=== PATIENT | female | born 1960 | race Caucasian/White ===

== ENCOUNTER 2019-10-18 07:33 | Inpatient (IN) ==
[2019-10-18] MEDS ORDERED: CeFAZolin Syr 2,000MG/20 ML 2,000 MG/20 ML SYRINGE IVPB ONE (07:51)
[2019-10-18] MEDS ORDERED: Ringers Solution, Lactated 1,000 ML IVC SCH (08:00)
[2019-10-18] MEDS ORDERED: Gabapentin 300 MG CAPSULE PO ONE (08:00)
[2019-10-18] MEDS ORDERED: *HR* Labetalol 20 MG/4 ML SYRINGE IVP PRN (08:04)
[2019-10-18] MEDS ORDERED: *HR* HYDROmorphone PF 0.5 MG/0.5 ML SYRINGE IVP PRN (08:04)
[2019-10-18] MEDS ORDERED: *HR* Promethazine 25 MG/ML VIAL IVP PRN (08:04)
[2019-10-18] MEDS ORDERED: Ondansetron 4 MG/2 ML VIAL IVP PRN ×2 (08:04→12:52)
[2019-10-18] MEDS ORDERED: Famotidine 20 MG/2 ML VIAL IVP ONE (08:04)
[2019-10-18] MEDS ORDERED: Ondansetron 4 MG/2 ML VIAL ONE (09:25)
[2019-10-18] MEDS ORDERED: Ketorolac 30 MG/ML VIAL ONE (09:25)
[2019-10-18] MEDS ORDERED: Lidocaine -MPF 2% 2 ML VIAL ONE (09:25)
[2019-10-18] MEDS ORDERED: Dexamethasone 4 MG/ML VIAL ONE (09:25)
[2019-10-18] MEDS ORDERED: *HR* FentaNYL (PF) 100 MCG/2 ML VIAL ONE ×2 (09:25→10:39)
[2019-10-18] MEDS ORDERED: *HR* Succinylcholine 200 MG/10 ML VIAL IVP ONE (09:25)
[2019-10-18] MEDS ORDERED: *HR* Rocuronium Bromide 50 MG/5 ML VIAL ONE (09:25)
[2019-10-18] MEDS ORDERED: *HR* Midazolam HCl 2 MG/2 ML VIAL ONE (09:25)
[2019-10-18] MEDS ORDERED: *HR* Phenylephrine 10 MG/ML VIAL ONE (09:25)
[2019-10-18] MEDS ORDERED: *HR* Propofol 200 MG/20 ML VIAL IVP ONE (09:28)
[2019-10-18] MEDS ORDERED: Lidocaine Jelly 6ml 1 APPL/6 ML JEL.PF.APP ONE (09:37)
[2019-10-18] MEDS ORDERED: *HR* PHENYLEPHRINE 1,000 MCG/10 ML SYRINGE IVP ONE (10:10)
[2019-10-18] MEDS ORDERED: Albumin Human 5% 25.0 GM/500 ML IV.SOLN ONE (10:26)
[2019-10-18] MEDS ORDERED: *HR* HYDROMORPHONE 2 MG/ML VIAL ONE ×2 (11:34→11:41)
[2019-10-18] MEDS ORDERED: Naloxone 0.4 MG/ML INJ IVP PRN (12:52)
[2019-10-18] MEDS: 0.9 % Sodium Chloride 1,000 ML IVC SCH ×2 (12:55→23:36)
[2019-10-18] MEDS: *HR* Heparin 5,000 UNIT/ML VIAL SQ SCH ×2 (14:20→20:10)
[2019-10-18] MEDS: Ketorolac 15 MG/ML VIAL IVP SCH ×3 (14:20→23:32)
[2019-10-18] MEDS: Gabapentin 400 MG CAPSULE PO SCH ×2 (14:20→20:11)
[2019-10-18] MEDS: Ipratropium/Albuterol Neb 3 ML IH SCH ×4 (15:30→23:53)
[2019-10-18] MEDS: Famotidine 20 MG TABLET PO SCH (17:01)
[2019-10-18] MEDS: *HR* OxyCODONE/APAP 7.5/325 TABLET PO PRN ×2 (17:06→21:30)
[2019-10-18] MEDS: Budesonide/Formoterol 160/4.5 1 PUFF INH IH SCH (20:03)
[2019-10-18] MEDS: rOPINIRole 1 MG TABLET PO SCH (20:10)
[2019-10-18] MEDS: Sennosides/Docusate Sodium TABLET PO SCH (20:11)
[2019-10-19 02:47] LABS: Hematocrit 36.4 % (35.3-44.9); Hemoglobin 11.9 g/dL (11.5-15.4); Mean Corpuscular HGB Conc 32.7 g/dL (31.6-35.5); Mean Corpuscular Hemoglobin 28.9 pg (28.0-33.3); Mean Corpuscular Volume 88.3 fL (83.0-100.0); Mean Platelet Volume 9.3 fL (9.4-12.4); Platelet Count 238 K/mcL (140-400); Red Blood Count 4.12 M/mcL (3.82-4.97); Red Cell Distribution Width 14.8 % (11.5-14.5); White Blood Count 13.2 K/mcL (4.3-11.1)
[2019-10-19 03:06] LABS: % Iron Saturation 11 % (15-50); BUN/Creatinine Ratio 14 (6-26); Blood Urea Nitrogen 12 mg/dL (6-20); Calcium 8.4 mg/dL (8.6-10.3); Carbon Dioxide 29 mEq/L (23-29); Chloride 98 mEq/L (98-107); Glucose 114 mg/dL (70-105); Iron 32 mcg/dL (50-170); Magnesium 1.7 mg/dL (1.6-2.6); Osmolality,Calculated 277 (280-300); Potassium 3.8 mEq/L (3.5-5.1); Sodium 133 mEq/L (136-145); Transferrin 199 mg/dL (203-362); eGFR For African Americans > 60 (> 60); eGFR For Non-African Americans > 60 (> 60)
[2019-10-19] MEDS: Ipratropium/Albuterol Neb 3 ML IH SCH ×6 (03:42→23:58)
[2019-10-19] MEDS: *HR* OxyCODONE/APAP 7.5/325 TABLET PO PRN ×5 (04:12→22:15)
[2019-10-19] MEDS: *HR* Heparin 5,000 UNIT/ML VIAL SQ SCH ×3 (05:01→20:44)
[2019-10-19] MEDS: Ketorolac 15 MG/ML VIAL IVP SCH ×4 (05:01→23:55)
[2019-10-19] MEDS: Sennosides/Docusate Sodium TABLET PO SCH ×2 (07:40→20:44)
[2019-10-19] MEDS: Gabapentin 400 MG CAPSULE PO SCH ×3 (07:40→20:44)
[2019-10-19] MEDS: Budesonide/Formoterol 160/4.5 1 PUFF INH IH SCH ×2 (07:40→20:08)
[2019-10-19] MEDS: hydroCHLOROthiazide 25 MG TABLET PO SCH (07:41)
[2019-10-19] MEDS: Loratadine 10 MG TABLET PO SCH (07:41)
[2019-10-19] MEDS: Famotidine 20 MG TABLET PO SCH ×2 (07:41→15:23)
[2019-10-19] MEDS: Tiotropium 18 MCG inhalation IH SCH (07:45)
[2019-10-19] MEDS ORDERED: Iron Sucrose Complex 400 MG in 0.9 % Sodium Chloride 250 ML IVPB ONE (08:57)
[2019-10-19] MEDS: Fluticasone Propionate Nasal 50 MCG/SPRAY BOTTLE NS SCH (09:16)
[2019-10-19] MEDS: 0.9 % Sodium Chloride 1,000 ML IVC SCH (16:48)
[2019-10-19] MEDS: hydrOXYzine pamoate 25 MG CAPSULE PO PRN (19:10)
[2019-10-19] MEDS: rOPINIRole 1 MG TABLET PO SCH (20:44)
[2019-10-20] MEDS: hydrOXYzine pamoate 25 MG CAPSULE PO PRN ×2 (01:13→16:28)
[2019-10-20] MEDS: Ipratropium/Albuterol Neb 3 ML IH SCH ×6 (04:18→23:52)
[2019-10-20] MEDS: *HR* OxyCODONE/APAP 7.5/325 TABLET PO PRN ×5 (04:18→20:53)
[2019-10-20] MEDS: Famotidine 20 MG TABLET PO SCH ×2 (06:21→16:28)
[2019-10-20] MEDS: Ketorolac 15 MG/ML VIAL IVP SCH ×3 (06:22→16:28)
[2019-10-20] MEDS: *HR* Heparin 5,000 UNIT/ML VIAL SQ SCH ×3 (06:22→20:54)
[2019-10-20] MEDS: Loratadine 10 MG TABLET PO SCH (07:13)
[2019-10-20] MEDS: Gabapentin 400 MG CAPSULE PO SCH ×3 (07:14→20:52)
[2019-10-20] MEDS: Fluticasone Propionate Nasal 50 MCG/SPRAY BOTTLE NS SCH (07:14)
[2019-10-20] MEDS: hydroCHLOROthiazide 25 MG TABLET PO SCH (07:14)
[2019-10-20] MEDS: Sennosides/Docusate Sodium TABLET PO SCH ×2 (07:14→20:53)
[2019-10-20] MEDS: Budesonide/Formoterol 160/4.5 1 PUFF INH IH SCH ×2 (08:35→20:24)
[2019-10-20] MEDS: Tiotropium 18 MCG inhalation IH SCH (08:36)
[2019-10-20] MEDS: rOPINIRole 1 MG TABLET PO SCH (20:53)
[2019-10-21] MEDS: Ketorolac 15 MG/ML VIAL IVP SCH ×4 (00:07→16:31)
[2019-10-21] MEDS: hydrOXYzine pamoate 25 MG CAPSULE PO PRN (00:07)
[2019-10-21] MEDS: *HR* OxyCODONE/APAP 7.5/325 TABLET PO PRN ×5 (01:25→20:04)
[2019-10-21] MEDS: Ipratropium/Albuterol Neb 3 ML IH SCH ×5 (04:14→20:18)
[2019-10-21] MEDS: *HR* Heparin 5,000 UNIT/ML VIAL SQ SCH ×3 (05:45→22:29)
[2019-10-21] MEDS: Gabapentin 400 MG CAPSULE PO SCH ×3 (07:05→20:04)
[2019-10-21] MEDS: Loratadine 10 MG TABLET PO SCH (07:05)
[2019-10-21] MEDS: Fluticasone Propionate Nasal 50 MCG/SPRAY BOTTLE NS SCH (07:05)
[2019-10-21] MEDS: Sennosides/Docusate Sodium TABLET PO SCH ×2 (07:05→20:04)
[2019-10-21] MEDS: Famotidine 20 MG TABLET PO SCH ×2 (07:05→16:31)
[2019-10-21] MEDS: hydroCHLOROthiazide 25 MG TABLET PO SCH (07:05)
[2019-10-21] MEDS: Budesonide/Formoterol 160/4.5 1 PUFF INH IH SCH ×2 (07:59→20:18)
[2019-10-21] MEDS: Tiotropium 18 MCG inhalation IH SCH (08:00)
[2019-10-21] MEDS: Furosemide 40 MG/4 ML VIAL IVP SCH (11:04)
[2019-10-21] MEDS: rOPINIRole 1 MG TABLET PO SCH (20:04)
[2019-10-22] MEDS: Ipratropium/Albuterol Neb 3 ML IH SCH ×7 (00:06→23:50)
[2019-10-22] MEDS: Ketorolac 15 MG/ML VIAL IVP SCH ×5 (00:10→23:54)
[2019-10-22] MEDS: hydrOXYzine pamoate 25 MG CAPSULE PO PRN (02:51)
[2019-10-22] MEDS: *HR* OxyCODONE/APAP 7.5/325 TABLET PO PRN ×3 (04:19→21:07)
[2019-10-22] MEDS: *HR* Heparin 5,000 UNIT/ML VIAL SQ SCH ×3 (04:19→21:02)
[2019-10-22] MEDS: Furosemide 40 MG/4 ML VIAL IVP SCH (07:11)
[2019-10-22] MEDS: Famotidine 20 MG TABLET PO SCH ×2 (07:12→16:48)
[2019-10-22] MEDS: Loratadine 10 MG TABLET PO SCH (07:12)
[2019-10-22] MEDS: hydroCHLOROthiazide 25 MG TABLET PO SCH (07:12)
[2019-10-22] MEDS: Sennosides/Docusate Sodium TABLET PO SCH ×2 (07:12→21:02)
[2019-10-22] MEDS: Gabapentin 400 MG CAPSULE PO SCH ×3 (07:12→21:02)
[2019-10-22] MEDS: Fluticasone Propionate Nasal 50 MCG/SPRAY BOTTLE NS SCH (07:13)
[2019-10-22] MEDS: Budesonide/Formoterol 160/4.5 1 PUFF INH IH SCH ×2 (07:17→19:44)
[2019-10-22] MEDS: Tiotropium 18 MCG inhalation IH SCH (07:20)
[2019-10-22] MEDS ORDERED: Azithromycin 250 MG TABLET PO ONE (08:30)
[2019-10-22 08:59] LABS: Hematocrit 34.8 % (35.3-44.9); Hemoglobin 11.7 g/dL (11.5-15.4); Mean Corpuscular HGB Conc 33.6 g/dL (31.6-35.5); Mean Corpuscular Hemoglobin 29.1 pg (28.0-33.3); Mean Corpuscular Volume 86.6 fL (83.0-100.0); Mean Platelet Volume 9.7 fL (9.4-12.4); Platelet Count 244 K/mcL (140-400); Red Blood Count 4.02 M/mcL (3.82-4.97); Red Cell Distribution Width 14.8 % (11.5-14.5); White Blood Count 16.7 K/mcL (4.3-11.1)
[2019-10-22 09:18] LABS: BUN/Creatinine Ratio 21 (6-26); Blood Urea Nitrogen 13 mg/dL (6-20); Carbon Dioxide 29 mEq/L (23-29); Chloride 85 mEq/L (98-107); Glucose 147 mg/dL (70-105); Osmolality,Calculated 261 (280-300); Potassium 3.5 mEq/L (3.5-5.1); Sodium 124 mEq/L (136-145); eGFR For African Americans > 60 (> 60); eGFR For Non-African Americans > 60 (> 60)
[2019-10-22] MEDS: rOPINIRole 1 MG TABLET PO SCH (21:02)
[2019-10-23] MEDS: *HR* OxyCODONE/APAP 7.5/325 TABLET PO PRN ×4 (01:22→19:03)
[2019-10-23] MEDS: Ipratropium/Albuterol Neb 3 ML IH SCH ×6 (03:34→23:41)
[2019-10-23 04:18] LABS: Hematocrit 32.8 % (35.3-44.9); Hemoglobin 10.9 g/dL (11.5-15.4); Mean Corpuscular HGB Conc 33.2 g/dL (31.6-35.5); Mean Corpuscular Hemoglobin 29.1 pg (28.0-33.3); Mean Corpuscular Volume 87.5 fL (83.0-100.0); Mean Platelet Volume 10.5 fL (9.4-12.4); Platelet Count 278 K/mcL (140-400); Red Blood Count 3.75 M/mcL (3.82-4.97); Red Cell Distribution Width 14.9 % (11.5-14.5); White Blood Count 14.9 K/mcL (4.3-11.1)
[2019-10-23 04:42] LABS: BUN/Creatinine Ratio 23 (6-26); Blood Urea Nitrogen 13 mg/dL (6-20); Carbon Dioxide 30 mEq/L (23-29); Chloride 87 mEq/L (98-107); Glucose 113 mg/dL (70-105); Magnesium 1.6 mg/dL (1.6-2.6); Osmolality,Calculated 263 (280-300); Potassium 3.6 mEq/L (3.5-5.1); Sodium 126 mEq/L (136-145); eGFR For African Americans > 60 (> 60); eGFR For Non-African Americans > 60 (> 60)
[2019-10-23] MEDS: Ketorolac 15 MG/ML VIAL IVP SCH ×2 (06:47→11:27)
[2019-10-23] MEDS: *HR* Heparin 5,000 UNIT/ML VIAL SQ SCH ×3 (06:48→21:51)
[2019-10-23] MEDS: Budesonide/Formoterol 160/4.5 1 PUFF INH IH SCH ×2 (07:25→19:32)
[2019-10-23] MEDS: Azithromycin 250 MG TABLET PO SCH (07:33)
[2019-10-23] MEDS: Sennosides/Docusate Sodium TABLET PO SCH ×2 (07:34→21:52)
[2019-10-23] MEDS: Gabapentin 400 MG CAPSULE PO SCH ×3 (07:34→21:51)
[2019-10-23] MEDS: Loratadine 10 MG TABLET PO SCH (07:34)
[2019-10-23] MEDS: Famotidine 20 MG TABLET PO SCH ×2 (07:34→17:06)
[2019-10-23] MEDS: Furosemide 40 MG/4 ML VIAL IVP SCH (07:34)
[2019-10-23] MEDS: Tiotropium 18 MCG inhalation IH SCH (07:34)
[2019-10-23] MEDS: Fluticasone Propionate Nasal 50 MCG/SPRAY BOTTLE NS SCH (07:35)
[2019-10-23] MEDS: hydroCHLOROthiazide 25 MG TABLET PO SCH (07:36)
[2019-10-23] MEDS: hydrOXYzine pamoate 25 MG CAPSULE PO PRN (21:52)
[2019-10-23] MEDS: rOPINIRole 1 MG TABLET PO SCH (21:52)
[2019-10-24 01:08] LABS: Hematocrit 31.8 % (35.3-44.9); Hemoglobin 10.4 g/dL (11.5-15.4); Mean Corpuscular HGB Conc 32.7 g/dL (31.6-35.5); Mean Corpuscular Hemoglobin 29.1 pg (28.0-33.3); Mean Corpuscular Volume 89.1 fL (83.0-100.0); Mean Platelet Volume 10.1 fL (9.4-12.4); Platelet Count 290 K/mcL (140-400); Red Blood Count 3.57 M/mcL (3.82-4.97)
[2019-10-24 01:28] LABS: BUN/Creatinine Ratio 23 (6-26); Blood Urea Nitrogen 14 mg/dL (6-20); Calcium 9.1 mg/dL (8.6-10.3); Carbon Dioxide 31 mEq/L (23-29); Chloride 91 mEq/L (98-107); Glucose 101 mg/dL (70-105); Magnesium 1.9 mg/dL (1.6-2.6); Osmolality,Calculated 273 (280-300); Potassium 3.5 mEq/L (3.5-5.1); Sodium 131 mEq/L (136-145); eGFR For African Americans > 60 (> 60); eGFR For Non-African Americans > 60 (> 60)
[2019-10-24] MEDS: Ipratropium/Albuterol Neb 3 ML IH SCH ×6 (03:57→23:37)
[2019-10-24] MEDS: *HR* OxyCODONE/APAP 7.5/325 TABLET PO PRN ×3 (06:01→20:37)
[2019-10-24] MEDS: *HR* Heparin 5,000 UNIT/ML VIAL SQ SCH ×3 (06:01→20:45)
[2019-10-24] MEDS: Budesonide/Formoterol 160/4.5 1 PUFF INH IH SCH ×2 (07:29→20:01)
[2019-10-24] MEDS: Tiotropium 18 MCG inhalation IH SCH (07:30)
[2019-10-24] MEDS: Furosemide 40 MG/4 ML VIAL IVP SCH (07:53)
[2019-10-24] MEDS: Gabapentin 400 MG CAPSULE PO SCH ×3 (07:53→20:37)
[2019-10-24] MEDS: Famotidine 20 MG TABLET PO SCH ×2 (07:53→16:06)
[2019-10-24] MEDS: Azithromycin 250 MG TABLET PO SCH (07:53)
[2019-10-24] MEDS: Sennosides/Docusate Sodium TABLET PO SCH ×2 (07:53→20:37)
[2019-10-24] MEDS: Loratadine 10 MG TABLET PO SCH (07:54)
[2019-10-24] MEDS: hydroCHLOROthiazide 25 MG TABLET PO SCH (07:54)
[2019-10-24] MEDS: Fluticasone Propionate Nasal 50 MCG/SPRAY BOTTLE NS SCH (07:54)
[2019-10-24] MEDS: hydrOXYzine pamoate 25 MG CAPSULE PO PRN (20:37)
[2019-10-24] MEDS: rOPINIRole 1 MG TABLET PO SCH (20:37)
[2019-10-25] MEDS: *HR* OxyCODONE/APAP 7.5/325 TABLET PO PRN ×5 (01:03→20:59)
[2019-10-25 01:15] LABS: Hematocrit 32.7 % (35.3-44.9); Hemoglobin 10.8 g/dL (11.5-15.4); Mean Corpuscular Hemoglobin 29.6 pg (28.0-33.3); Mean Corpuscular Volume 89.6 fL (83.0-100.0); Mean Platelet Volume 10.1 fL (9.4-12.4); Platelet Count 323 K/mcL (140-400); Red Blood Count 3.65 M/mcL (3.82-4.97); Red Cell Distribution Width 14.9 % (11.5-14.5); White Blood Count 9.3 K/mcL (4.3-11.1)
[2019-10-25 01:30] LABS: BUN/Creatinine Ratio 23 (6-26); Blood Urea Nitrogen 14 mg/dL (6-20); Calcium 9.1 mg/dL (8.6-10.3); Carbon Dioxide 29 mEq/L (23-29); Chloride 97 mEq/L (98-107); Glucose 90 mg/dL (70-105); Osmolality,Calculated 276 (280-300); Potassium 4.2 mEq/L (3.5-5.1); Sodium 133 mEq/L (136-145); eGFR For African Americans > 60 (> 60); eGFR For Non-African Americans > 60 (> 60)
[2019-10-25] MEDS: Ipratropium/Albuterol Neb 3 ML IH SCH ×5 (03:21→20:07)
[2019-10-25] MEDS: *HR* Heparin 5,000 UNIT/ML VIAL SQ SCH ×3 (05:49→20:19)
[2019-10-25] MEDS: Budesonide/Formoterol 160/4.5 1 PUFF INH IH SCH ×2 (07:18→20:08)
[2019-10-25] MEDS: Tiotropium 18 MCG inhalation IH SCH (07:19)
[2019-10-25] MEDS: Gabapentin 400 MG CAPSULE PO SCH ×3 (07:44→20:19)
[2019-10-25] MEDS: Sennosides/Docusate Sodium TABLET PO SCH ×2 (07:44→20:18)
[2019-10-25] MEDS: Loratadine 10 MG TABLET PO SCH (07:44)
[2019-10-25] MEDS: Fluticasone Propionate Nasal 50 MCG/SPRAY BOTTLE NS SCH (07:44)
[2019-10-25] MEDS: Famotidine 20 MG TABLET PO SCH ×2 (07:44→16:56)
[2019-10-25] MEDS: Azithromycin 250 MG TABLET PO SCH (07:44)
[2019-10-25] MEDS: rOPINIRole 1 MG TABLET PO SCH (20:19)
[2019-10-26] MEDS: Ipratropium/Albuterol Neb 3 ML IH SCH ×4 (00:09→11:45)
[2019-10-26] MEDS: *HR* Heparin 5,000 UNIT/ML VIAL SQ SCH (06:07)
[2019-10-26] MEDS: *HR* OxyCODONE/APAP 7.5/325 TABLET PO PRN (06:07)
[2019-10-26] MEDS: Sennosides/Docusate Sodium TABLET PO SCH (07:55)
[2019-10-26] MEDS: Azithromycin 250 MG TABLET PO SCH (07:56)
[2019-10-26] MEDS: Loratadine 10 MG TABLET PO SCH (07:56)
[2019-10-26] MEDS: Famotidine 20 MG TABLET PO SCH (07:56)
[2019-10-26] MEDS: Gabapentin 400 MG CAPSULE PO SCH (07:56)
[2019-10-26] MEDS: Fluticasone Propionate Nasal 50 MCG/SPRAY BOTTLE NS SCH (07:56)
[2019-10-26 08:08] VITALS: BP 99/77
[2019-10-26] MEDS: Budesonide/Formoterol 160/4.5 1 PUFF INH IH SCH (08:27)
[2019-10-26] MEDS: Tiotropium 18 MCG inhalation IH SCH (10:31)
== END 2019-10-26 12:00 | disposition home or self-care (01) | DRG 121 ==
LOC: SAMDAY 07:33 → 2NNU 08:42
PROVIDERS: ADMIT Thoracic Surgery (Cardiothoracic Vascular Surgery); ATTEND Thoracic Surgery (Cardiothoracic Vascular Surgery)

== ENCOUNTER 2020-04-27 02:53 | Inpatient (IN) ==
[2020-04-27] MEDS ORDERED: Naloxone 0.4 MG/ML INJ IVP PRN (06:21)
[2020-04-27] MEDS ORDERED: 0.9 % Sodium Chloride 1,000 ML IVC ONE (06:47)
[2020-04-27] MEDS ORDERED: Vancomycin 1,500 MG/265 ML IV.SOLN IVPB ONE (07:00)
[2020-04-27 07:13] LABS: Adenovirus Not Detected (Not Detect); Bordetella Pertussis Not Detected (Not Detect); Chlamydophila pneumoniae Not Detected (Not Detect); Coronavirus 229E Not Detected (Not Detect); Coronavirus HKU1 Not Detected (Not Detect); Coronavirus NL63 Not Detected (Not Detect); Coronavirus OC43 Not Detected (Not Detect); Human Metapneumovirus Not Detected (Not Detect); Human Rhinovirus/Enterovirus Not Detected (Not Detect); Influenza A Subtype 2009 H1 Not Detected (Not Detect); Influenza B Not Detected (Not Detect); Mycoplasma pneumoniae Not Detected (Not Detect); Parainfluenza Virus 1 Not Detected (Not Detect); Parainfluenza Virus 2 Not Detected (Not Detect); Parainfluenza Virus 3 Not Detected (Not Detect); Parainfluenza Virus 4 Not Detected (Not Detect); Respiratory Syncytial Virus Not Detected (Not Detect); SARS-CoV-2 Not Detected (Not Detect)
[2020-04-27] MEDS: Ipratropium/Albuterol Neb 3 ML IH SCH ×5 (09:34→23:38)
[2020-04-27] MEDS: Budesonide/Formoterol 160/4.5 1 PUFF INH IH SCH ×2 (10:12→19:31)
[2020-04-27] MEDS: 0.9 % Sodium Chloride 1,000 ML IVC SCH ×2 (10:42→22:30)
[2020-04-27] MEDS: Gabapentin 400 MG CAPSULE PO SCH ×2 (10:43→17:14)
[2020-04-27] MEDS: Piperacillin/Tazobactam 3.375 GM in 0.9 % Sodium Chloride Mini Bag 100 ML IVPB SCH ×2 (10:43→17:13)
[2020-04-27] MEDS: *HR* Heparin 5,000 UNIT/ML VIAL SQ SCH ×3 (10:44→20:07)
[2020-04-27] MEDS ORDERED: MethylPREDNISolone 40 MG/ML VIAL IVP SCH (11:00)
[2020-04-27 13:00] LABS: Basophils % 0.1 %; Hematocrit 36.6 % (35.3-44.9); Hemoglobin 12.3 g/dL (11.5-15.4); Immature Granulocytes % 0.6 % (0-4); Lymphocytes # 0.6 K/mcL (0.6-4.6); Lymphocytes % 3.1 %; Mean Corpuscular HGB Conc 33.6 g/dL (31.6-35.5); Mean Corpuscular Hemoglobin 30.1 pg (28.0-33.3); Mean Corpuscular Volume 89.7 fL (83.0-100.0); Mean Platelet Volume 9.4 fL (9.4-12.4); Monocytes # 0.1 K/mcL (0.0-1.3); Monocytes % 0.6 %; Neutrophils # 17.7 K/mcL (1.6-8.9); Platelet Count 253 K/mcL (140-400); Red Blood Count 4.08 M/mcL (3.82-4.97); Red Cell Distribution Width 13.7 % (11.5-14.5); Segmented Neutrophils % 95.6 %; White Blood Count 18.5 K/mcL (4.3-11.1)
[2020-04-27 13:17] LABS: BUN/Creatinine Ratio 29 (6-26); Blood Urea Nitrogen 20 mg/dL (6-20); Calcium 9.1 mg/dL (8.6-10.3); Carbon Dioxide 29 mEq/L (23-29); Chloride 97 mEq/L (98-107); Glucose 183 mg/dL (70-105); Osmolality,Calculated 281 (280-300); Potassium 3.4 mEq/L (3.5-5.1); Sodium 132 mEq/L (136-145); eGFR For African Americans > 60 (> 60); eGFR For Non-African Americans > 60 (> 60)
[2020-04-27] MEDS ORDERED: Iron Sucrose Complex 200 MG in 0.9 % Sodium Chloride 100 ML IVPB SCH (15:15)
[2020-04-27] MEDS ORDERED: Ipratropium/Albuterol Neb 3 ML IH ONE (17:32)
[2020-04-27] MEDS ORDERED: Ipratropium/Albuterol Neb 3 ML IH PRN (17:40)
[2020-04-27 18:02] LABS: ABG Base Excess 4 mEq/L (-2 to 3); ABG HCO3 30 mEq/L (21-27); ABG Oxygen Saturation 89 % (95-98); ABG PCO2 48 mmHg (35-45); ABG PO2 58 mmHg (85-104); ABG TCO2 31 mEq/L (20-26)
[2020-04-27] MEDS: MethylPREDNISolone 40 MG/ML VIAL IVP SCH (18:56)
[2020-04-28] MEDS: Piperacillin/Tazobactam 3.375 GM in 0.9 % Sodium Chloride Mini Bag 100 ML IVPB SCH ×4 (00:09→23:22)
[2020-04-28] MEDS: MethylPREDNISolone 40 MG/ML VIAL IVP SCH ×5 (00:10→23:22)
[2020-04-28] MEDS ORDERED: Azithromycin 500 MG in 0.9 % Sodium Chloride 250 ML IVPB SCH (03:00)
[2020-04-28] MEDS ORDERED: cefTRIAXone 2,000 MG in 0.9 % Sodium Chloride Mini Bag 100 ML IVPB SCH (03:00)
[2020-04-28] MEDS: Ipratropium/Albuterol Neb 3 ML IH SCH ×6 (03:24→23:38)
[2020-04-28] MEDS ORDERED: *HR* OxyCODONE/APAP 5/325 TABLET PO ONE (04:20)
[2020-04-28] MEDS: *HR* Heparin 5,000 UNIT/ML VIAL SQ SCH ×3 (05:28→20:35)
[2020-04-28 06:31] LABS: Basophils % 0.1 %; Hemoglobin 11.2 g/dL (11.5-15.4); Immature Granulocytes % 0.8 % (0-4); Lymphocytes # 0.6 K/mcL (0.6-4.6); Lymphocytes % 4.3 %; Mean Corpuscular HGB Conc 32.9 g/dL (31.6-35.5); Mean Corpuscular Hemoglobin 29.6 pg (28.0-33.3); Mean Corpuscular Volume 89.9 fL (83.0-100.0); Mean Platelet Volume 9.7 fL (9.4-12.4); Monocytes # 0.4 K/mcL (0.0-1.3); Monocytes % 2.8 %; Neutrophils # 13.6 K/mcL (1.6-8.9); Platelet Count 275 K/mcL (140-400); Red Blood Count 3.78 M/mcL (3.82-4.97); Red Cell Distribution Width 13.9 % (11.5-14.5); White Blood Count 14.8 K/mcL (4.3-11.1)
[2020-04-28 06:51] LABS: BUN/Creatinine Ratio 28 (6-26); Blood Urea Nitrogen 18 mg/dL (6-20); Calcium 9.1 mg/dL (8.6-10.3); Carbon Dioxide 27 mEq/L (23-29); Chloride 101 mEq/L (98-107); Glucose 157 mg/dL (70-105); Osmolality,Calculated 287 (280-300); Potassium 3.5 mEq/L (3.5-5.1); Sodium 136 mEq/L (136-145); eGFR For African Americans > 60 (> 60); eGFR For Non-African Americans > 60 (> 60)
[2020-04-28 08:27] LABS: ABG Base Excess 5 mEq/L (-2 to 3); ABG HCO3 30 mEq/L (21-27); ABG Oxygen Saturation 87 % (95-98); ABG PCO2 46 mmHg (35-45); ABG PH 7.42 pH Units (7.32-7.45); ABG PO2 53 mmHg (85-104); ABG TCO2 32 mEq/L (20-26)
[2020-04-28] MEDS ORDERED: Isovue-370 500 ML BOTTLE IVP ONE (08:40)
[2020-04-28] MEDS ORDERED: *HR* Heparin 5,000 UNIT/ML VIAL IVP ONE (08:41)
[2020-04-28] MEDS ORDERED: *HR* Heparin 5,000 UNIT/ML VIAL IVP PRN ×2 (08:41)
[2020-04-28] MEDS ORDERED: Heparin 25,000UNIT/250ML 1/2NS 25,000 UNIT/250 ML IV.SOLN IVC SCH (08:45)
[2020-04-28] MEDS: Acetaminophen 325 MG TABLET PO PRN (08:51)
[2020-04-28 09:49] LABS: Hematocrit 33.7 % (35.3-44.9); Hemoglobin 11.2 g/dL (11.5-15.4); Mean Corpuscular HGB Conc 33.2 g/dL (31.6-35.5); Mean Corpuscular Hemoglobin 30.1 pg (28.0-33.3); Mean Corpuscular Volume 90.6 fL (83.0-100.0); Mean Platelet Volume 9.7 fL (9.4-12.4); Platelet Count 265 K/mcL (140-400); Red Blood Count 3.72 M/mcL (3.82-4.97); White Blood Count 15.6 K/mcL (4.3-11.1)
[2020-04-28 09:59] LABS: Heparin anti-factor XA UFH < 0.04 IU/mL (0.30-0.70)
[2020-04-28 10:00] LABS: INR 1.2; Prothrombin Time 13.4 Seconds (9.4-12.1)
[2020-04-28] MEDS ORDERED: Morphine Sulfate 2 MG/ML SYRINGE IVP ONE (10:50)
[2020-04-28] MEDS: Budesonide/Formoterol 160/4.5 1 PUFF INH IH SCH ×2 (11:28→19:45)
[2020-04-28] MEDS: Vancomycin 1,500 MG/265 ML IV.SOLN IVPB SCH (14:36)
[2020-04-28] MEDS: *HR* OxyCODONE/APAP 5/325 TABLET PO PRN ×2 (14:44→20:36)
[2020-04-28] MEDS ORDERED: Nystatin SUSP 5 ML UD.LIQ PO SCH (17:00)
[2020-04-28] MEDS: Doxycycline 100 MG in 0.9 % Sodium Chloride Mini Bag 100 ML IVPB SCH (17:20)
[2020-04-28] MEDS ORDERED: *HR* LORazepam 1 MG TABLET PO ONE (19:50)
[2020-04-29] MEDS: *HR* OxyCODONE/APAP 5/325 TABLET PO PRN ×2 (02:41→08:57)
[2020-04-29] MEDS: Vancomycin 1,500 MG/265 ML IV.SOLN IVPB SCH ×2 (02:41→14:01)
[2020-04-29] MEDS: Ipratropium/Albuterol Neb 3 ML IH SCH ×6 (04:12→23:26)
[2020-04-29 05:04] LABS: Hematocrit 34.6 % (35.3-44.9); Hemoglobin 11.1 g/dL (11.5-15.4); Mean Corpuscular HGB Conc 32.1 g/dL (31.6-35.5); Mean Corpuscular Volume 90.3 fL (83.0-100.0); Mean Platelet Volume 9.8 fL (9.4-12.4); Platelet Count 321 K/mcL (140-400); Red Blood Count 3.83 M/mcL (3.82-4.97); Red Cell Distribution Width 14.1 % (11.5-14.5); White Blood Count 13.3 K/mcL (4.3-11.1)
[2020-04-29 05:07] LABS: BUN/Creatinine Ratio 34 (6-26); Blood Urea Nitrogen 20 mg/dL (6-20); Calcium 9.3 mg/dL (8.6-10.3); Carbon Dioxide 28 mEq/L (23-29); Chloride 103 mEq/L (98-107); Glucose 125 mg/dL (70-105); Osmolality,Calculated 292 (280-300); Potassium 3.4 mEq/L (3.5-5.1); Sodium 139 mEq/L (136-145); eGFR For African Americans > 60 (> 60); eGFR For Non-African Americans > 60 (> 60)
[2020-04-29] MEDS: MethylPREDNISolone 40 MG/ML VIAL IVP SCH ×3 (05:38→17:16)
[2020-04-29] MEDS: *HR* Heparin 5,000 UNIT/ML VIAL SQ SCH ×3 (05:38→21:23)
[2020-04-29] MEDS: Doxycycline 100 MG in 0.9 % Sodium Chloride Mini Bag 100 ML IVPB SCH ×2 (05:38→17:20)
[2020-04-29] MEDS: Budesonide/Formoterol 160/4.5 1 PUFF INH IH SCH ×2 (07:32→20:12)
[2020-04-29] MEDS: Acetaminophen 325 MG TABLET PO PRN (07:44)
[2020-04-29] MEDS: Piperacillin/Tazobactam 3.375 GM in 0.9 % Sodium Chloride Mini Bag 100 ML IVPB SCH ×2 (07:45→15:32)
[2020-04-29] MEDS ORDERED: *HR* LORazepam 2 MG/ML VIAL IVP ONE (08:58)
[2020-04-29] MEDS ORDERED: hydrOXYzine pamoate 25 MG CAPSULE PO PRN (09:14)
[2020-04-29] MEDS ORDERED: Haloperidol Lactate 5 MG/ML VIAL IVP ONE (10:11)
[2020-04-29] MEDS ORDERED: Dexmedetomidine HCl 400 MCG/100 ML MLS IVC ONE (10:49)
[2020-04-29] MEDS: Dexmedetomidine HCl 400 MCG/100 ML MLS IVC SCH ×4 (10:52→23:12)
[2020-04-29 11:01] LABS: ABG Base Excess 0 mEq/L (-2 to 3); ABG HCO3 27 mEq/L (21-27); ABG Oxygen Saturation 98 % (95-98); ABG PCO2 50 mmHg (35-45); ABG PH 7.34 pH Units (7.32-7.45); ABG PO2 111 mmHg (85-104); ABG TCO2 28 mEq/L (20-26); Blood Gas VT 12 cc
[2020-04-29] MEDS ORDERED: Ipratropium/Albuterol Neb 3 ML IH PRN (12:53)
[2020-04-29] MEDS ORDERED: Naloxone 0.4 MG/ML INJ IVP PRN (12:53)
[2020-04-29] MEDS ORDERED: Dexmedetomidine HCl 400 MCG/100 ML MLS IVC SCH ×2 (12:53→15:10)
[2020-04-29] MEDS: rOPINIRole 1 MG TABLET PO SCH (20:17)
[2020-04-29] MEDS ORDERED: rOPINIRole 1 MG TABLET PO SCH (21:00)
[2020-04-29] MEDS ORDERED: *HR* Labetalol 20 MG/4 ML SYRINGE IVP PRN (22:30)
[2020-04-30] MEDS: MethylPREDNISolone 40 MG/ML VIAL IVP SCH ×4 (00:03→18:46)
[2020-04-30] MEDS: Piperacillin/Tazobactam 3.375 GM in 0.9 % Sodium Chloride Mini Bag 100 ML IVPB SCH ×3 (00:03→16:11)
[2020-04-30] MEDS ORDERED: *HR* Promethazine 25 MG/ML VIAL IVP ONE (00:21)
[2020-04-30] MEDS ORDERED: Ketorolac 30 MG/ML VIAL IVP ONE (00:21)
[2020-04-30 01:03] LABS: ABG Base Excess 3 mEq/L (-2 to 3); ABG HCO3 27 mEq/L (21-27); ABG Oxygen Saturation 95 % (95-98); ABG PCO2 39 mmHg (35-45); ABG PH 7.45 pH Units (7.32-7.45); ABG PO2 70 mmHg (85-104); ABG TCO2 28 mEq/L (20-26)
[2020-04-30] MEDS ORDERED: *HR* LORazepam 2 MG/ML VIAL IVP ONE ×2 (01:17→06:22)
[2020-04-30] MEDS ORDERED: *HR* LORazepam 2 MG/ML VIAL ONE ×2 (01:18→06:19)
[2020-04-30] MEDS: Dexmedetomidine HCl 400 MCG/100 ML MLS IVC SCH ×7 (02:32→23:45)
[2020-04-30] MEDS: Ipratropium/Albuterol Neb 3 ML IH SCH ×8 (03:33→23:23)
[2020-04-30] MEDS: Vancomycin 1,500 MG/265 ML IV.SOLN IVPB SCH (04:28)
[2020-04-30 04:40] LABS: Hematocrit 37.6 % (35.3-44.9); Hemoglobin 12.3 g/dL (11.5-15.4); Mean Corpuscular HGB Conc 32.7 g/dL (31.6-35.5); Mean Corpuscular Volume 91.7 fL (83.0-100.0); Mean Platelet Volume 9.6 fL (9.4-12.4); Platelet Count 317 K/mcL (140-400); Red Cell Distribution Width 14.3 % (11.5-14.5); White Blood Count 11.6 K/mcL (4.3-11.1)
[2020-04-30 05:00] LABS: BUN/Creatinine Ratio 35 (6-26); Blood Urea Nitrogen 39 mg/dL (6-20); Calcium 9.5 mg/dL (8.6-10.3); Carbon Dioxide 21 mEq/L (23-29); Chloride 107 mEq/L (98-107); Glucose 157 mg/dL (70-105); Osmolality,Calculated 307 (280-300); Potassium 4.4 mEq/L (3.5-5.1); Sodium 142 mEq/L (136-145); eGFR For African Americans > 60 (> 60); eGFR For Non-African Americans 50 (> 60)
[2020-04-30] MEDS: *HR* Heparin 5,000 UNIT/ML VIAL SQ SCH ×3 (06:25→22:18)
[2020-04-30] MEDS: Doxycycline 100 MG in 0.9 % Sodium Chloride Mini Bag 100 ML IVPB SCH ×2 (06:25→18:47)
[2020-04-30] MEDS: Budesonide/Formoterol 160/4.5 1 PUFF INH IH SCH ×2 (07:49→19:40)
[2020-04-30] MEDS ORDERED: Artificial Tears SOLN 15 ML BOTTLE BOTH EYES PRN (09:44)
[2020-04-30] MEDS: FentaNYL (PF) 1,000 MCG/100 ML IV.SOLN IVC SCH ×2 (09:45→22:31)
[2020-04-30 10:28] LABS: ABG Base Excess -3 mEq/L (-2 to 3); ABG HCO3 28 mEq/L (21-27); ABG Oxygen Saturation 92 % (95-98); ABG PCO2 73 mmHg (35-45); ABG PH 7.19 pH Units (7.32-7.45); ABG PO2 81 mmHg (85-104); ABG TCO2 30 mEq/L (20-26); Blood Gas Modality ASSIST CONTROL; Blood Gas VT 450 cc
[2020-04-30] MEDS ORDERED: *HR* Midazolam HCl 5 MG/5 ML VIAL IVP ONE (10:29)
[2020-04-30] MEDS ORDERED: *HR* Rocuronium Bromide 50 MG/5 ML VIAL IVP ONE (10:29)
[2020-04-30] MEDS ORDERED: *HR* Propofol 200 MG/20 ML VIAL IVP ONE (10:29)
[2020-04-30] MEDS: Artificial Tears SOLN 15 ML BOTTLE BOTH EYES SCH ×3 (11:28→22:19)
[2020-04-30] MEDS: Chlorhexidine Rinse 15 ML MOUTHWASH MM SCH ×2 (11:28→20:33)
[2020-04-30] MEDS: Pantoprazole 40 MG VIAL IVP SCH (11:59)
[2020-04-30] MEDS ORDERED: Furosemide 40 MG/4 ML VIAL IVP ONE (12:23)
[2020-04-30 13:16] LABS: ABG Base Excess 1 mEq/L (-2 to 3); ABG HCO3 28 mEq/L (21-27); ABG Oxygen Saturation 100 % (95-98); ABG PCO2 54 mmHg (35-45); ABG PH 7.32 pH Units (7.32-7.45); ABG PO2 375 mmHg (85-104); ABG TCO2 29 mEq/L (20-26); Blood Gas Modality ASSIST CONTROL; Blood Gas VT 420 cc
[2020-04-30] MEDS: Acetaminophen 325 MG TABLET PO PRN (16:01)
[2020-04-30 16:38] LABS: Calcium 9.3 mg/dL (8.6-10.3); Potassium 4.7 mEq/L (3.5-5.1)
[2020-04-30] MEDS ORDERED: Vancomycin 1 EACH in 0.9 % Sodium Chloride 250 ML IVPB PRN (17:00)
[2020-04-30 18:11] LABS: Uric Acid 6.4 mg/dL (2.3-7.6)
[2020-04-30 19:58] LABS: Bacteria,Urine Few per hpf (None-Few); Bilirubin,Urine Negative (Negative); Blood,Urine Small (Negative); Clarity,Urine Clear (Clear); Color,Urine Light-Yellow (Yellow); Glucose,Urine (UA) Normal (Normal); Hyaline Casts,Urine Few per lpf (None Seen); Ketones,Urine Negative (Negative); Leukocyte Esterase,Urine Negative (Negative); Mucus,Urine Few per lpf (None-Few); Nitrite,Urine Negative (Negative); Protein,Urine Trace mg/dL (Neg-Trace); Specific Gravity,Urine 1.013 (1.010-1.025); Squamous Epithelial Cell,Urine Few per hpf (None-Few); Urobilinogen,Urine Normal (Normal)
[2020-04-30 20:16] LABS: Protein/Creatinine Ratio,Urine 0.84 mg/mg (0.00-0.20)
[2020-04-30] MEDS: rOPINIRole 1 MG TABLET PO SCH (20:33)
[2020-04-30 20:46] LABS: ABG Base Excess -1 mEq/L (-2 to 3); ABG HCO3 25 mEq/L (21-27); ABG Oxygen Saturation 99 % (95-98); ABG PCO2 44 mmHg (35-45); ABG PH 7.36 pH Units (7.32-7.45); ABG PO2 136 mmHg (85-104); ABG TCO2 26 mEq/L (20-26); Blood Gas Modality ASSIST CONTROL; Blood Gas VT 420 cc
[2020-04-30] MEDS ORDERED: Acetaminophen IV 1,000 MG/100 ML INFUS..BTL IVPB ONE (21:20)
[2020-04-30] MEDS ORDERED: Cyprohepatdine 4 MG TABLET GTUBE STA (21:20)
[2020-04-30 21:23] LABS: Basophils # 0.1 K/mcL (0.0-0.2); Basophils % 0.4 %; Hematocrit 40.2 % (35.3-44.9); Hemoglobin 12.7 g/dL (11.5-15.4); Immature Granulocytes % 4.1 % (0-4); Lymphocytes # 1.1 K/mcL (0.6-4.6); Lymphocytes % 5.6 %; Mean Corpuscular HGB Conc 31.6 g/dL (31.6-35.5); Mean Corpuscular Hemoglobin 29.5 pg (28.0-33.3); Mean Corpuscular Volume 93.5 fL (83.0-100.0); Monocytes # 1.7 K/mcL (0.0-1.3); Monocytes % 8.9 %; Neutrophils # 15.6 K/mcL (1.6-8.9); Nucleated Red Blood Cells 0.2 /100 WBC (0); Platelet Count 351 K/mcL (140-400); Red Cell Distribution Width 15.2 % (11.5-14.5)
[2020-04-30 21:25] LABS: White Blood Count 19.2 K/mcL (4.3-11.1)
[2020-04-30] MEDS: Midazolam HCl 50 MG/100 ML IV.SOLN IVC SCH (21:42)
[2020-04-30 21:43] LABS: Calcium 9.2 mg/dL (8.6-10.3); Potassium 4.4 mEq/L (3.5-5.1)
[2020-05-01] MEDS ORDERED: Cyprohepatdine 4 MG TABLET GTUBE ONE
[2020-05-01] MEDS: MethylPREDNISolone 40 MG/ML VIAL IVP SCH ×5 (00:48→23:38)
[2020-05-01] MEDS: Artificial Tears SOLN 15 ML BOTTLE BOTH EYES SCH ×7 (01:21→23:36)
[2020-05-01] MEDS: Piperacillin/Tazobactam 3.375 GM in 0.9 % Sodium Chloride Mini Bag 100 ML IVPB SCH ×4 (01:22→23:39)
[2020-05-01] MEDS: Ipratropium/Albuterol Neb 3 ML IH SCH ×6 (03:33→23:45)
[2020-05-01 04:41] LABS: ABG Base Excess -3 mEq/L (-2 to 3); ABG HCO3 24 mEq/L (21-27); ABG Oxygen Saturation 99 % (95-98); ABG PCO2 46 mmHg (35-45); ABG PH 7.32 pH Units (7.32-7.45); ABG PO2 166 mmHg (85-104); ABG TCO2 25 mEq/L (20-26); Blood Gas Modality ASSIST CONTROL; Blood Gas VT 420 cc
[2020-05-01] MEDS: Midazolam HCl 50 MG/100 ML IV.SOLN IVC SCH ×2 (05:00→22:45)
[2020-05-01] MEDS: FentaNYL (PF) 1,000 MCG/100 ML IV.SOLN IVC SCH ×2 (05:01→17:19)
[2020-05-01] MEDS: Dexmedetomidine HCl 400 MCG/100 ML MLS IVC SCH ×5 (05:03→23:10)
[2020-05-01] MEDS: Doxycycline 100 MG in 0.9 % Sodium Chloride Mini Bag 100 ML IVPB SCH ×2 (05:50→17:18)
[2020-05-01] MEDS: *HR* Heparin 5,000 UNIT/ML VIAL SQ SCH ×3 (05:51→21:09)
[2020-05-01 07:34] LABS: Calcium 8.9 mg/dL (8.6-10.3); Potassium 4.2 mEq/L (3.5-5.1)
[2020-05-01] MEDS: Budesonide/Formoterol 160/4.5 1 PUFF INH IH SCH ×2 (07:35→20:06)
[2020-05-01 07:36] LABS: Magnesium 2.1 mg/dL (1.6-2.6); Phosphorous 6.1 mg/dL (2.7-4.5)
[2020-05-01 07:49] LABS: Hematocrit 37.2 % (35.3-44.9); Hemoglobin 11.8 g/dL (11.5-15.4); Mean Corpuscular HGB Conc 31.7 g/dL (31.6-35.5); Mean Corpuscular Hemoglobin 29.1 pg (28.0-33.3); Mean Corpuscular Volume 91.9 fL (83.0-100.0); Mean Platelet Volume 10.2 fL (9.4-12.4); Platelet Count 252 K/mcL (140-400); Red Blood Count 4.05 M/mcL (3.82-4.97); Red Cell Distribution Width 15.1 % (11.5-14.5)
[2020-05-01] MEDS: Pantoprazole 40 MG VIAL IVP SCH (08:52)
[2020-05-01] MEDS: Chlorhexidine Rinse 15 ML MOUTHWASH MM SCH ×2 (08:52→21:09)
[2020-05-01] MEDS: *HR* Metoprolol 5 MG/5 ML VIAL IVP SCH ×2 (12:28→12:32)
[2020-05-01] MEDS ORDERED: Perflutren Lipid Microsphere 1.3 ML in 0.9 % Sodium Chloride 8.7 ML IVP PRN (13:01)
[2020-05-01] MEDS: 0.9 % Sodium Chloride 1,000 ML IVC SCH (14:12)
[2020-05-01] MEDS: rOPINIRole 1 MG TABLET PO SCH (21:09)
[2020-05-02] MEDS: FentaNYL (PF) 1,000 MCG/100 ML IV.SOLN IVC SCH ×4 (00:55→21:28)
[2020-05-02] MEDS: Dexmedetomidine HCl 400 MCG/100 ML MLS IVC SCH ×5 (03:10→20:15)
[2020-05-02] MEDS: 0.9 % Sodium Chloride 1,000 ML IVC SCH (03:18)
[2020-05-02] MEDS: Artificial Tears SOLN 15 ML BOTTLE BOTH EYES SCH ×5 (03:20→21:07)
[2020-05-02] MEDS: Ipratropium/Albuterol Neb 3 ML IH SCH ×5 (03:31→19:44)
[2020-05-02 04:03] LABS: Hematocrit 34.7 % (35.3-44.9); Hemoglobin 10.8 g/dL (11.5-15.4); Mean Corpuscular HGB Conc 31.1 g/dL (31.6-35.5); Mean Corpuscular Hemoglobin 28.7 pg (28.0-33.3); Mean Corpuscular Volume 92.3 fL (83.0-100.0); Mean Platelet Volume 9.8 fL (9.4-12.4); Platelet Count 246 K/mcL (140-400); Red Blood Count 3.76 M/mcL (3.82-4.97); Red Cell Distribution Width 15.1 % (11.5-14.5); White Blood Count 7.9 K/mcL (4.3-11.1)
[2020-05-02 04:21] LABS: Magnesium 1.9 mg/dL (1.6-2.6); Phosphorous 4.3 mg/dL (2.7-4.5)
[2020-05-02 04:23] LABS: Calcium 8.1 mg/dL (8.6-10.3); Potassium 3.7 mEq/L (3.5-5.1)
[2020-05-02 04:27] LABS: Troponin I 1.59 ng/mL (< 0.04)
[2020-05-02 04:56] LABS: ABG Base Excess -1 mEq/L (-2 to 3); ABG HCO3 25 mEq/L (21-27); ABG Oxygen Saturation 94 % (95-98); ABG PCO2 45 mmHg (35-45); ABG PH 7.36 pH Units (7.32-7.45); ABG PO2 75 mmHg (85-104); ABG TCO2 26 mEq/L (20-26); Blood Gas VT 420 cc
[2020-05-02] MEDS ORDERED: *HR* Heparin 5,000 UNIT/ML VIAL IVP ONE (05:16)
[2020-05-02] MEDS ORDERED: *HR* Heparin 5,000 UNIT/ML VIAL IVP PRN ×2 (05:16)
[2020-05-02] MEDS: Doxycycline 100 MG in 0.9 % Sodium Chloride Mini Bag 100 ML IVPB SCH ×2 (05:22→17:40)
[2020-05-02] MEDS: MethylPREDNISolone 40 MG/ML VIAL IVP SCH ×2 (05:22→17:40)
[2020-05-02] MEDS: Heparin 25,000UNIT/250ML 1/2NS 25,000 UNIT/250 ML IV.SOLN IVC SCH (05:46)
[2020-05-02] MEDS: Budesonide/Formoterol 160/4.5 1 PUFF INH IH SCH ×2 (07:34→19:44)
[2020-05-02] MEDS: Piperacillin/Tazobactam 3.375 GM in 0.9 % Sodium Chloride Mini Bag 100 ML IVPB SCH ×2 (07:43→15:18)
[2020-05-02] MEDS: Chlorhexidine Rinse 15 ML MOUTHWASH MM SCH ×2 (07:43→21:06)
[2020-05-02] MEDS: Pantoprazole 40 MG VIAL IVP SCH (07:44)
[2020-05-02] MEDS: Midazolam HCl 50 MG/100 ML IV.SOLN IVC SCH ×2 (12:00→22:21)
[2020-05-02 13:13] LABS: Troponin I 1.62 ng/mL (< 0.04)
[2020-05-02 14:00] LABS: Thyroid Stimulating Hormone 0.098 mcIU/mL (0.340-5.600)
[2020-05-02] MEDS: Aspirin 81 MG TAB.CHEW PO SCH (14:14)
[2020-05-02] MEDS: Vancomycin 1,500 MG/265 ML IV.SOLN IVPB SCH (21:00)
[2020-05-02] MEDS: rOPINIRole 1 MG TABLET PO SCH (21:06)
[2020-05-02 21:12] LABS: Appearance of Body Fluid Hazy (Clear); Volume of Body Fluid 15 mL
[2020-05-02 21:32] LABS: Appearance of Body Fluid Hazy (Clear); Volume of Body Fluid 15 mL
[2020-05-03] MEDS: Ipratropium/Albuterol Neb 3 ML IH SCH ×6 (00:14→19:47)
[2020-05-03] MEDS: Dexmedetomidine HCl 400 MCG/100 ML MLS IVC SCH ×4 (00:29→20:20)
[2020-05-03] MEDS: Piperacillin/Tazobactam 3.375 GM in 0.9 % Sodium Chloride Mini Bag 100 ML IVPB SCH ×4 (00:47→23:32)
[2020-05-03] MEDS: Artificial Tears SOLN 15 ML BOTTLE BOTH EYES SCH ×7 (00:47→23:32)
[2020-05-03 04:20] LABS: Basophils % 0.2 %; Hematocrit 33.4 % (35.3-44.9); Hemoglobin 10.4 g/dL (11.5-15.4); Immature Granulocytes % 6.1 % (0-4); Lymphocytes % 9.5 %; Mean Corpuscular HGB Conc 31.1 g/dL (31.6-35.5); Mean Corpuscular Hemoglobin 29.3 pg (28.0-33.3); Mean Corpuscular Volume 94.1 fL (83.0-100.0); Mean Platelet Volume 10.2 fL (9.4-12.4); Monocytes # 0.7 K/mcL (0.0-1.3); Monocytes % 7.3 %; Neutrophils # 7.8 K/mcL (1.6-8.9); Nucleated Red Blood Cells 0.2 /100 WBC (0); Platelet Count 261 K/mcL (140-400); Red Blood Count 3.55 M/mcL (3.82-4.97); Red Cell Distribution Width 15.6 % (11.5-14.5); Segmented Neutrophils % 76.9 %; White Blood Count 10.1 K/mcL (4.3-11.1)
[2020-05-03 04:33] LABS: Calcium 8.9 mg/dL (8.6-10.3); Potassium 3.6 mEq/L (3.5-5.1)
[2020-05-03] MEDS: FentaNYL (PF) 1,000 MCG/100 ML IV.SOLN IVC SCH ×3 (04:48→19:03)
[2020-05-03 04:49] LABS: Triiodothyronine (T3) Free 1.66 pg/mL (2.50-3.90)
[2020-05-03 05:01] LABS: ABG Base Excess 1 mEq/L (-2 to 3); ABG HCO3 26 mEq/L (21-27); ABG Oxygen Saturation 94 % (95-98); ABG PCO2 45 mmHg (35-45); ABG PH 7.37 pH Units (7.32-7.45); ABG PO2 73 mmHg (85-104); ABG TCO2 28 mEq/L (20-26); Blood Gas Modality ASSIST CONTROL; Blood Gas VT 420 cc
[2020-05-03 05:55] LABS: Platelet Estimate Normal (Normal)
[2020-05-03] MEDS: Heparin 25,000UNIT/250ML 1/2NS 25,000 UNIT/250 ML IV.SOLN IVC SCH ×2 (06:07→23:04)
[2020-05-03] MEDS: Doxycycline 100 MG in 0.9 % Sodium Chloride Mini Bag 100 ML IVPB SCH ×2 (06:11→18:31)
[2020-05-03] MEDS: MethylPREDNISolone 40 MG/ML VIAL IVP SCH ×2 (06:11→18:15)
[2020-05-03] MEDS: Budesonide/Formoterol 160/4.5 1 PUFF INH IH SCH ×2 (07:45→19:48)
[2020-05-03] MEDS: Chlorhexidine Rinse 15 ML MOUTHWASH MM SCH ×2 (08:16→20:18)
[2020-05-03] MEDS: Aspirin 81 MG TAB.CHEW PO SCH (08:16)
[2020-05-03] MEDS: Pantoprazole 40 MG VIAL IVP SCH (08:16)
[2020-05-03] MEDS: Midazolam HCl 50 MG/100 ML IV.SOLN IVC SCH ×2 (12:04→23:42)
[2020-05-03] MEDS: rOPINIRole 1 MG TABLET PO SCH (20:18)
[2020-05-03 23:43] LABS: Calcium 8.9 mg/dL (8.6-10.3); Potassium 3.7 mEq/L (3.5-5.1)
[2020-05-04] MEDS: FentaNYL (PF) 1,000 MCG/100 ML IV.SOLN IVC SCH ×2 (02:42→09:05)
[2020-05-04] MEDS: Ipratropium/Albuterol Neb 3 ML IH SCH ×7 (03:39→23:27)
[2020-05-04] MEDS: Dexmedetomidine HCl 400 MCG/100 ML MLS IVC SCH ×6 (04:05→21:23)
[2020-05-04 04:08] LABS: ABG Base Excess 1 mEq/L (-2 to 3); ABG HCO3 26 mEq/L (21-27); ABG Oxygen Saturation 95 % (95-98); ABG PCO2 45 mmHg (35-45); ABG PH 7.37 pH Units (7.32-7.45); ABG PO2 77 mmHg (85-104); ABG TCO2 27 mEq/L (20-26); Blood Gas Modality ASSIST CONTROL; Blood Gas VT 420 cc
[2020-05-04] MEDS: Artificial Tears SOLN 15 ML BOTTLE BOTH EYES SCH ×6 (04:15→23:28)
[2020-05-04 04:18] LABS: Hematocrit 33.5 % (35.3-44.9); Hemoglobin 10.2 g/dL (11.5-15.4); Mean Corpuscular HGB Conc 30.4 g/dL (31.6-35.5); Mean Corpuscular Hemoglobin 28.5 pg (28.0-33.3); Mean Corpuscular Volume 93.6 fL (83.0-100.0); Mean Platelet Volume 10.3 fL (9.4-12.4); Platelet Count 257 K/mcL (140-400); Red Blood Count 3.58 M/mcL (3.82-4.97); Red Cell Distribution Width 15.7 % (11.5-14.5); White Blood Count 7.7 K/mcL (4.3-11.1)
[2020-05-04 04:32] LABS: Calcium 8.9 mg/dL (8.6-10.3); Potassium 3.6 mEq/L (3.5-5.1)
[2020-05-04] MEDS: Midazolam HCl 50 MG/100 ML IV.SOLN IVC SCH (04:35)
[2020-05-04 05:29] LABS: Lymphocytes # 0.8 K/mcL (0.6-4.6); Monocytes # 0.2 K/mcL (0.0-1.3); Neutrophils # 6.5 K/mcL (1.6-8.9)
[2020-05-04 05:30] LABS: Platelet Estimate Normal (Normal)
[2020-05-04] MEDS: MethylPREDNISolone 40 MG/ML VIAL IVP SCH ×2 (06:39→16:49)
[2020-05-04] MEDS: Budesonide/Formoterol 160/4.5 1 PUFF INH IH SCH ×2 (07:33→19:44)
[2020-05-04] MEDS: Chlorhexidine Rinse 15 ML MOUTHWASH MM SCH ×2 (07:36→19:59)
[2020-05-04] MEDS: Pantoprazole 40 MG VIAL IVP SCH (07:37)
[2020-05-04] MEDS: Piperacillin/Tazobactam 3.375 GM in 0.9 % Sodium Chloride Mini Bag 100 ML IVPB SCH ×3 (07:37→23:27)
[2020-05-04] MEDS: Aspirin 81 MG TAB.CHEW PO SCH (07:37)
[2020-05-04] MEDS ORDERED: D5% in Water 1,000 ML IVC SCH (08:45)
[2020-05-04] MEDS: Heparin 25,000UNIT/250ML 1/2NS 25,000 UNIT/250 ML IV.SOLN IVC SCH (15:45)
[2020-05-04 16:15] LABS: Potassium 3.4 mEq/L (3.5-5.1)
[2020-05-04] MEDS ORDERED: *HR* LORazepam 2 MG/ML VIAL IVP ONE (16:33)
[2020-05-04] MEDS: D5% in Water 1,000 ML IVC SCH (19:59)
[2020-05-04] MEDS: rOPINIRole 1 MG TABLET PO SCH (20:00)
[2020-05-04] MEDS: *HR* OxyCODONE/APAP 5/325 TABLET PO PRN (20:01)
[2020-05-04] MEDS: hydrOXYzine pamoate 25 MG CAPSULE PO PRN (20:03)
[2020-05-04] MEDS: *HR* LORazepam 2 MG/ML VIAL IVP PRN (21:17)
[2020-05-05] MEDS: *HR* LORazepam 2 MG/ML VIAL IVP PRN ×6 (00:35→19:43)
[2020-05-05] MEDS: Dexmedetomidine HCl 400 MCG/100 ML MLS IVC SCH ×5 (00:44→21:30)
[2020-05-05] MEDS: Ipratropium/Albuterol Neb 3 ML IH SCH ×6 (03:27→23:09)
[2020-05-05 03:32] LABS: Basophils % 0.2 %; Eosinophils % 0.3 %; Hematocrit 33.2 % (35.3-44.9); Hemoglobin 10.3 g/dL (11.5-15.4); Immature Granulocytes % 2.8 % (0-4); Lymphocytes # 1.3 K/mcL (0.6-4.6); Mean Corpuscular Hemoglobin 29.4 pg (28.0-33.3); Mean Corpuscular Volume 94.9 fL (83.0-100.0); Mean Platelet Volume 10.2 fL (9.4-12.4); Monocytes # 0.5 K/mcL (0.0-1.3); Monocytes % 4.5 %; Neutrophils # 9.7 K/mcL (1.6-8.9); Platelet Count 255 K/mcL (140-400); Red Cell Distribution Width 15.4 % (11.5-14.5); Segmented Neutrophils % 81.2 %
[2020-05-05] MEDS: D5% in Water 1,000 ML IVC SCH ×4 (03:35→23:57)
[2020-05-05] MEDS: Artificial Tears SOLN 15 ML BOTTLE BOTH EYES SCH ×6 (03:36→23:57)
[2020-05-05 03:51] LABS: Calcium 8.8 mg/dL (8.6-10.3); Potassium 3.5 mEq/L (3.5-5.1)
[2020-05-05] MEDS: hydrOXYzine pamoate 25 MG CAPSULE PO PRN ×2 (04:00→18:25)
[2020-05-05] MEDS: *HR* OxyCODONE/APAP 5/325 TABLET PO PRN ×2 (04:00→11:33)
[2020-05-05] MEDS: Heparin 25,000UNIT/250ML 1/2NS 25,000 UNIT/250 ML IV.SOLN IVC SCH (05:00)
[2020-05-05] MEDS: MethylPREDNISolone 40 MG/ML VIAL IVP SCH (05:13)
[2020-05-05] MEDS: Budesonide/Formoterol 160/4.5 1 PUFF INH IH SCH ×2 (07:40→23:09)
[2020-05-05] MEDS: Chlorhexidine Rinse 15 ML MOUTHWASH MM SCH ×2 (08:08→19:43)
[2020-05-05] MEDS: Aspirin 81 MG TAB.CHEW PO SCH (08:08)
[2020-05-05] MEDS: Piperacillin/Tazobactam 3.375 GM in 0.9 % Sodium Chloride Mini Bag 100 ML IVPB SCH ×3 (08:09→23:55)
[2020-05-05] MEDS: Pantoprazole 40 MG VIAL IVP SCH (08:10)
[2020-05-05] MEDS ORDERED: Haloperidol Lactate 5 MG/ML VIAL IVP ONE ×2 (08:11→08:55)
[2020-05-05] MEDS: Haloperidol Lactate 5 MG/ML VIAL IVP PRN ×2 (16:44→23:56)
[2020-05-06] MEDS: Heparin 25,000UNIT/250ML 1/2NS 25,000 UNIT/250 ML IV.SOLN IVC SCH (00:58)
[2020-05-06] MEDS: Dexmedetomidine HCl 400 MCG/100 ML MLS IVC SCH ×7 (01:41→20:32)
[2020-05-06] MEDS: Artificial Tears SOLN 15 ML BOTTLE BOTH EYES SCH ×5 (03:19→19:09)
[2020-05-06] MEDS: *HR* LORazepam 2 MG/ML VIAL IVP PRN (03:50)
[2020-05-06] MEDS: Ipratropium/Albuterol Neb 3 ML IH SCH ×7 (03:51→23:19)
[2020-05-06] MEDS: Budesonide/Formoterol 160/4.5 1 PUFF INH IH SCH ×2 (07:20→19:29)
[2020-05-06] MEDS: Piperacillin/Tazobactam 3.375 GM in 0.9 % Sodium Chloride Mini Bag 100 ML IVPB SCH (07:37)
[2020-05-06] MEDS: Chlorhexidine Rinse 15 ML MOUTHWASH MM SCH ×2 (07:38→19:09)
[2020-05-06] MEDS: Aspirin 81 MG TAB.CHEW PO SCH (07:38)
[2020-05-06] MEDS: D5% in Water 1,000 ML IVC SCH (07:38)
[2020-05-06] MEDS ORDERED: MethylPREDNISolone 40 MG/ML VIAL IVP SCH (09:00)
[2020-05-06] MEDS: Haloperidol Lactate 5 MG/ML VIAL IVP PRN ×2 (09:50→18:06)
[2020-05-06 10:49] LABS: Basophils % 0.2 %; Eosinophils # 0.1 K/mcL (0.0-0.6); Eosinophils % 0.6 %; Hematocrit 35.7 % (35.3-44.9); Hemoglobin 11.1 g/dL (11.5-15.4); Immature Granulocytes % 1.5 % (0-4); Lymphocytes # 0.6 K/mcL (0.6-4.6); Lymphocytes % 5.4 %; Mean Corpuscular HGB Conc 31.1 g/dL (31.6-35.5); Mean Corpuscular Hemoglobin 28.7 pg (28.0-33.3); Mean Corpuscular Volume 92.2 fL (83.0-100.0); Mean Platelet Volume 10.6 fL (9.4-12.4); Monocytes # 0.3 K/mcL (0.0-1.3); Monocytes % 2.5 %; Neutrophils # 10.7 K/mcL (1.6-8.9); Platelet Count 231 K/mcL (140-400); Red Blood Count 3.87 M/mcL (3.82-4.97); Red Cell Distribution Width 15.1 % (11.5-14.5); Segmented Neutrophils % 89.8 %; White Blood Count 11.9 K/mcL (4.3-11.1)
[2020-05-06 11:07] LABS: Calcium 9.4 mg/dL (8.6-10.3); Potassium 3.9 mEq/L (3.5-5.1)
[2020-05-06] MEDS ORDERED: Naloxone 0.4 MG/ML INJ IVP PRN (13:47)
[2020-05-06] MEDS ORDERED: *HR* Heparin 5,000 UNIT/ML VIAL SQ SCH (14:00)
[2020-05-06 16:59] LABS: Calcium 9.4 mg/dL (8.6-10.3); Potassium 3.6 mEq/L (3.5-5.1)
[2020-05-06] MEDS: Apixaban 5 MG TABLET PO SCH (19:09)
[2020-05-06 22:56] LABS: VBG Ionized Calcium 1.21 mmol/L (1.15-1.35)
[2020-05-06] MEDS ORDERED: *HR* Metoprolol 5 MG/5 ML VIAL IVP ONE (22:56)
[2020-05-06] MEDS ORDERED: *HR* Heparin 5,000 UNIT/ML VIAL IVP ONE (23:07)
[2020-05-06] MEDS ORDERED: *HR* Heparin 5,000 UNIT/ML VIAL IVP PRN ×2 (23:07)
[2020-05-06 23:09] LABS: Calcium 8.9 mg/dL (8.6-10.3); Phosphorous 3.8 mg/dL (2.7-4.5); Potassium 3.1 mEq/L (3.5-5.1)
[2020-05-06] MEDS ORDERED: D5% in Water 1,000 ML IVC SCH (23:45)
[2020-05-07] MEDS: Heparin 25,000UNIT/250ML 1/2NS 25,000 UNIT/250 ML IV.SOLN IVC SCH (00:18)
[2020-05-07] MEDS: Haloperidol Lactate 5 MG/ML VIAL IVP PRN (00:36)
[2020-05-07] MEDS: Ipratropium/Albuterol Neb 3 ML IH SCH ×5 (03:23→20:39)
[2020-05-07] MEDS: Dexmedetomidine HCl 400 MCG/100 ML MLS IVC SCH ×2 (05:17)
[2020-05-07 05:37] LABS: Hematocrit 36.9 % (35.3-44.9); Hemoglobin 11.7 g/dL (11.5-15.4); Mean Corpuscular HGB Conc 31.7 g/dL (31.6-35.5); Mean Corpuscular Hemoglobin 29.1 pg (28.0-33.3); Mean Corpuscular Volume 91.8 fL (83.0-100.0); Mean Platelet Volume 10.9 fL (9.4-12.4); Platelet Count 236 K/mcL (140-400); Red Blood Count 4.02 M/mcL (3.82-4.97); Red Cell Distribution Width 14.6 % (11.5-14.5); White Blood Count 13.9 K/mcL (4.3-11.1)
[2020-05-07 05:38] LABS: Basophils % 0.1 %; Eosinophils # 0.1 K/mcL (0.0-0.6); Hematocrit 36.6 % (35.3-44.9); Hemoglobin 11.7 g/dL (11.5-15.4); Lymphocytes # 1.3 K/mcL (0.6-4.6); Lymphocytes % 9.4 %; Mean Corpuscular Hemoglobin 29.5 pg (28.0-33.3); Mean Corpuscular Volume 92.4 fL (83.0-100.0); Mean Platelet Volume 10.7 fL (9.4-12.4); Monocytes # 0.6 K/mcL (0.0-1.3); Monocytes % 4.6 %; Neutrophils # 11.5 K/mcL (1.6-8.9); Platelet Count 223 K/mcL (140-400); Red Blood Count 3.96 M/mcL (3.82-4.97); Red Cell Distribution Width 14.7 % (11.5-14.5); Segmented Neutrophils % 83.9 %; White Blood Count 13.7 K/mcL (4.3-11.1)
[2020-05-07 05:51] LABS: INR 1.5; Prothrombin Time 16.5 Seconds (9.4-12.1)
[2020-05-07 05:57] LABS: Calcium 9.7 mg/dL (8.6-10.3); Magnesium 1.9 mg/dL (1.6-2.6); Phosphorous 3.2 mg/dL (2.7-4.5); Potassium 3.1 mEq/L (3.5-5.1)
[2020-05-07 06:01] LABS: Heparin anti-factor XA UFH 1.08 IU/mL (0.30-0.70)
[2020-05-07] MEDS: *HR* Metoprolol 5 MG/5 ML VIAL IVP PRN ×3 (06:26→13:48)
[2020-05-07] MEDS ORDERED: Potassium Chloride 40 MEQ, Lidocaine 1% 2 ML in 0.9 % Sodium Chloride 500 ML IVPB ONE (07:06)
[2020-05-07] MEDS: Budesonide/Formoterol 160/4.5 1 PUFF INH IH SCH ×2 (07:24→20:39)
[2020-05-07] MEDS: Artificial Tears SOLN 15 ML BOTTLE BOTH EYES SCH ×6 (08:25→23:55)
[2020-05-07] MEDS: Chlorhexidine Rinse 15 ML MOUTHWASH MM SCH ×2 (08:25→20:51)
[2020-05-07] MEDS ORDERED: MethylPREDNISolone 40 MG/ML VIAL IVP SCH (09:00)
[2020-05-07] MEDS: D5% in Water 1,000 ML IVC SCH ×2 (09:26→19:20)
[2020-05-07] MEDS: Acetaminophen 325 MG TABLET PO PRN (11:20)
[2020-05-07] MEDS: *HR* Promethazine 25 MG/ML VIAL IVP PRN ×2 (11:30→17:39)
[2020-05-07 12:06] LABS: Calcium 9.3 mg/dL (8.6-10.3); Potassium 3.3 mEq/L (3.5-5.1)
[2020-05-07] MEDS ORDERED: Potassium Chloride 20 MEQ, Lidocaine 1% 2 ML in 0.9 % Sodium Chloride 250 ML IVPB ONE (14:08)
[2020-05-07] MEDS ORDERED: *HR* Metoprolol 5 MG/5 ML VIAL IVP ONE (14:12)
[2020-05-07 15:02] LABS: Hematocrit 36.9 % (35.3-44.9); Hemoglobin 11.5 g/dL (11.5-15.4); Mean Corpuscular HGB Conc 31.2 g/dL (31.6-35.5); Mean Corpuscular Volume 92.9 fL (83.0-100.0); Mean Platelet Volume 11.2 fL (9.4-12.4); Platelet Count 255 K/mcL (140-400); Red Blood Count 3.97 M/mcL (3.82-4.97); Red Cell Distribution Width 14.6 % (11.5-14.5); White Blood Count 14.6 K/mcL (4.3-11.1)
[2020-05-07 15:05] LABS: VBG Ionized Calcium 1.15 mmol/L (1.15-1.35)
[2020-05-07] MEDS: Ibuprofen 400 MG TABLET PO PRN (15:09)
[2020-05-07 15:25] LABS: Troponin I 0.14 ng/mL (< 0.04)
[2020-05-07 15:54] LABS: Magnesium 1.9 mg/dL (1.6-2.6); Phosphorous 3.5 mg/dL (2.7-4.5); Potassium 3.6 mEq/L (3.5-5.1)
[2020-05-07] MEDS: Apixaban 5 MG TABLET PO SCH (21:06)
[2020-05-08] MEDS: Ipratropium/Albuterol Neb 3 ML IH SCH ×7 (00:53→23:09)
[2020-05-08] MEDS: *HR* Promethazine 25 MG/ML VIAL IVP PRN (02:15)
[2020-05-08] MEDS: Artificial Tears SOLN 15 ML BOTTLE BOTH EYES SCH ×6 (03:50→23:00)
[2020-05-08] MEDS: Heparin 25,000UNIT/250ML 1/2NS 25,000 UNIT/250 ML IV.SOLN IVC SCH (03:50)
[2020-05-08] MEDS: Haloperidol Lactate 5 MG/ML VIAL IVP PRN (03:52)
[2020-05-08 04:14] LABS: Basophils % 0.2 %; Eosinophils # 0.2 K/mcL (0.0-0.6); Eosinophils % 1.7 %; Hematocrit 35.7 % (35.3-44.9); Hemoglobin 11.2 g/dL (11.5-15.4); Immature Granulocytes % 0.8 % (0-4); Lymphocytes # 1.9 K/mcL (0.6-4.6); Lymphocytes % 13.1 %; Mean Corpuscular HGB Conc 31.4 g/dL (31.6-35.5); Mean Corpuscular Hemoglobin 28.8 pg (28.0-33.3); Mean Corpuscular Volume 91.8 fL (83.0-100.0); Mean Platelet Volume 10.7 fL (9.4-12.4); Monocytes % 7.3 %; Neutrophils # 10.9 K/mcL (1.6-8.9); Platelet Count 251 K/mcL (140-400); Red Blood Count 3.89 M/mcL (3.82-4.97); Red Cell Distribution Width 14.9 % (11.5-14.5); Segmented Neutrophils % 76.9 %; White Blood Count 14.2 K/mcL (4.3-11.1)
[2020-05-08 04:33] LABS: BUN/Creatinine Ratio 33 (6-26); Blood Urea Nitrogen 34 mg/dL (6-20); Calcium 9.1 mg/dL (8.6-10.3); Carbon Dioxide 27 mEq/L (23-29); Chloride 112 mEq/L (98-107); Glucose 111 mg/dL (70-105); Magnesium 2.2 mg/dL (1.6-2.6); Osmolality,Calculated 312 (280-300); Phosphorous 3.5 mg/dL (2.7-4.5); Potassium 3.2 mEq/L (3.5-5.1); Sodium 147 mEq/L (136-145); eGFR For African Americans > 60 (> 60); eGFR For Non-African Americans 55 (> 60)
[2020-05-08] MEDS: Budesonide/Formoterol 160/4.5 1 PUFF INH IH SCH ×2 (08:01→20:21)
[2020-05-08] MEDS: Aspirin 81 MG TAB.CHEW PO SCH (09:02)
[2020-05-08] MEDS: predniSONE 10 MG TABLET PO SCH (09:04)
[2020-05-08] MEDS: Apixaban 5 MG TABLET PO SCH ×2 (09:05→20:27)
[2020-05-08] MEDS: Chlorhexidine Rinse 15 ML MOUTHWASH MM SCH ×2 (09:05→20:26)
[2020-05-08] MEDS: Ibuprofen 400 MG TABLET PO PRN (09:12)
[2020-05-08] MEDS ORDERED: Potassium Chloride 40 MEQ, Lidocaine 1% 2 ML in 0.9 % Sodium Chloride 500 ML IVPB ONE (16:12)
[2020-05-08] MEDS: *HR* Metoprolol 5 MG/5 ML VIAL IVP PRN (21:58)
[2020-05-09] MEDS: *HR* Promethazine 25 MG/ML VIAL IVP PRN ×2 (00:14→10:59)
[2020-05-09] MEDS: Artificial Tears SOLN 15 ML BOTTLE BOTH EYES SCH ×2 (03:27→08:12)
[2020-05-09] MEDS: Ipratropium/Albuterol Neb 3 ML IH SCH ×6 (03:31→23:09)
[2020-05-09] MEDS: Haloperidol Lactate 5 MG/ML VIAL IVP PRN (04:23)
[2020-05-09 04:50] LABS: Basophils % 0.2 %; Eosinophils # 0.2 K/mcL (0.0-0.6); Hematocrit 33.1 % (35.3-44.9); Hemoglobin 10.7 g/dL (11.5-15.4); Immature Granulocytes % 0.8 % (0-4); Lymphocytes % 17.5 %; Mean Corpuscular HGB Conc 32.3 g/dL (31.6-35.5); Mean Corpuscular Hemoglobin 29.6 pg (28.0-33.3); Mean Corpuscular Volume 91.4 fL (83.0-100.0); Mean Platelet Volume 11.2 fL (9.4-12.4); Monocytes % 8.6 %; Neutrophils # 8.1 K/mcL (1.6-8.9); Platelet Count 217 K/mcL (140-400); Red Blood Count 3.62 M/mcL (3.82-4.97); Red Cell Distribution Width 14.3 % (11.5-14.5); Segmented Neutrophils % 70.9 %; White Blood Count 11.4 K/mcL (4.3-11.1)
[2020-05-09 04:52] LABS: ABG Ionized Calcium 1.12 mmol/L (1.15-1.35)
[2020-05-09 05:05] LABS: Magnesium 1.8 mg/dL (1.6-2.6); Phosphorous 3.8 mg/dL (2.7-4.5)
[2020-05-09 05:06] LABS: Alanine Aminotransferase 28 Units/L (7-52); Albumin 3.2 g/dL (3.5-5.7); Albumin/Globulin Ratio 1.4 (1.1-2.2); Alkaline Phosphatase 56 Units/L (34-104); Aspartate Amino Transferase 16 Units/L (13-39); BUN/Creatinine Ratio 24 (6-26); Bilirubin,Total 0.8 mg/dL (0.3-1.0); Blood Urea Nitrogen 24 mg/dL (6-20); Calcium 8.5 mg/dL (8.6-10.3); Carbon Dioxide 26 mEq/L (23-29); Chloride 108 mEq/L (98-107); Globulin 2.3 g/dL (2.4-3.5); Glucose 90 mg/dL (70-105); Osmolality,Calculated 302 (280-300); Potassium 2.9 mEq/L (3.5-5.1); Sodium 144 mEq/L (136-145); Total Protein 5.5 g/dL (6.4-8.9); eGFR For African Americans > 60 (> 60); eGFR For Non-African Americans 58 (> 60)
[2020-05-09] MEDS: Budesonide/Formoterol 160/4.5 1 PUFF INH IH SCH ×2 (07:52→19:53)
[2020-05-09] MEDS: predniSONE 10 MG TABLET PO SCH (08:09)
[2020-05-09] MEDS: Aspirin 81 MG TAB.CHEW PO SCH (08:09)
[2020-05-09] MEDS: Apixaban 5 MG TABLET PO SCH ×2 (08:09→20:26)
[2020-05-09] MEDS: Chlorhexidine Rinse 15 ML MOUTHWASH MM SCH ×2 (08:09→20:26)
[2020-05-09] MEDS ORDERED: Calcium Chloride 1,000 MG in 0.9 % Sodium Chloride 100 ML IVPB ONE (09:39)
[2020-05-09 12:17] LABS: HSV Source NOT PROVIDED
[2020-05-09] MEDS ORDERED: rOPINIRole 1 MG TABLET PO SCH (22:45)
[2020-05-10] MEDS: Ipratropium/Albuterol Neb 3 ML IH SCH ×3 (03:40→11:12)
[2020-05-10 04:19] LABS: Basophils % 0.2 %; Eosinophils # 0.2 K/mcL (0.0-0.6); Eosinophils % 1.9 %; Hematocrit 31.4 % (35.3-44.9); Hemoglobin 9.9 g/dL (11.5-15.4); Immature Granulocytes % 1.1 % (0-4); Mean Corpuscular HGB Conc 31.5 g/dL (31.6-35.5); Mean Corpuscular Hemoglobin 28.8 pg (28.0-33.3); Mean Corpuscular Volume 91.3 fL (83.0-100.0); Mean Platelet Volume 11.5 fL (9.4-12.4); Monocytes # 1.2 K/mcL (0.0-1.3); Monocytes % 10.9 %; Neutrophils # 7.2 K/mcL (1.6-8.9); Platelet Count 263 K/mcL (140-400); Red Blood Count 3.44 M/mcL (3.82-4.97); Red Cell Distribution Width 14.4 % (11.5-14.5); Segmented Neutrophils % 66.9 %; White Blood Count 10.7 K/mcL (4.3-11.1)
[2020-05-10 04:42] LABS: BUN/Creatinine Ratio 20 (6-26); Blood Urea Nitrogen 22 mg/dL (6-20); Calcium 8.4 mg/dL (8.6-10.3); Carbon Dioxide 24 mEq/L (23-29); Chloride 108 mEq/L (98-107); Glucose 118 mg/dL (70-105); Magnesium 1.8 mg/dL (1.6-2.6); Osmolality,Calculated 298 (280-300); Phosphorous 3.5 mg/dL (2.7-4.5); Sodium 142 mEq/L (136-145); eGFR For African Americans > 60 (> 60); eGFR For Non-African Americans 50 (> 60)
[2020-05-10] MEDS: Budesonide/Formoterol 160/4.5 1 PUFF INH IH SCH (07:40)
[2020-05-10] MEDS: Chlorhexidine Rinse 15 ML MOUTHWASH MM SCH (09:59)
[2020-05-10] MEDS: Apixaban 5 MG TABLET PO SCH (09:59)
[2020-05-10] MEDS: Aspirin 81 MG TAB.CHEW PO SCH (09:59)
[2020-05-10 13:35] VITALS: BP 122/68
== END 2020-05-10 14:00 | disposition home or self-care (01) | DRG 720 ==
LOC: CDU → SUATTDRO 05:16 → 2ANU 07:27 → 2NNU 21:52 → ICNU 04-29 11:49 → 2NNU 05-08 04:28
PROVIDERS: ADMIT Internal Medicine; ATTEND Student in an Organized Health Care Education/Training Program
PROC: ENDOBRF (2020-05-02 19:10)

== ENCOUNTER 2020-06-17 12:29 | Observation (INO) ==
[2020-06-17] MEDS ORDERED: *HR* HYDROcodone/Acet 5/325 mg TABLET PO PRN (14:34)
[2020-06-17] MEDS ORDERED: Ondansetron 4 MG/2 ML VIAL IVP PRN (14:34)
[2020-06-17] MEDS ORDERED: Naloxone 0.4 MG/ML INJ IVP PRN (14:34)
[2020-06-17] MEDS ORDERED: Ipratropium/Albuterol Neb 3 ML IH PRN (14:39)
[2020-06-17] MEDS ORDERED: hydrOXYzine pamoate 25 MG CAPSULE PO PRN (14:40)
[2020-06-17] MEDS ORDERED: Ipratropium/Albuterol Neb 3 ML IH SCH (15:15)
[2020-06-17] MEDS: MethylPREDNISolone 40 MG/ML VIAL IVP SCH (15:30)
[2020-06-17] MEDS: Ipratropium/Albuterol Neb 3 ML IH SCH ×2 (15:40→22:39)
[2020-06-17] MEDS: Azithromycin 250 MG TABLET PO SCH (15:45)
[2020-06-17 15:51] LABS: ABG Base Excess 3 mEq/L (-2 to 3); ABG HCO3 29 mEq/L (21-27); ABG Oxygen Saturation 94 % (95-98); ABG PCO2 47 mmHg (35-45); ABG PH 7.39 pH Units (7.32-7.45); ABG PO2 74 mmHg (85-104); ABG TCO2 30 mEq/L (20-26)
[2020-06-17 15:58] LABS: Basophils % 0.1 %; Hematocrit 27.4 % (35.3-44.9); Hemoglobin 8.3 g/dL (11.5-15.4); Immature Granulocytes % 0.6 % (0-4); Lymphocytes # 0.6 K/mcL (0.6-4.6); Lymphocytes % 3.1 %; Mean Corpuscular HGB Conc 30.3 g/dL (31.6-35.5); Mean Corpuscular Hemoglobin 29.4 pg (28.0-33.3); Mean Corpuscular Volume 97.2 fL (83.0-100.0); Mean Platelet Volume 9.7 fL (9.4-12.4); Monocytes # 0.2 K/mcL (0.0-1.3); Monocytes % 1.1 %; Neutrophils # 17.5 K/mcL (1.6-8.9); Platelet Count 339 K/mcL (140-400); Red Blood Count 2.82 M/mcL (3.82-4.97); Red Cell Distribution Width 18.4 % (11.5-14.5); Segmented Neutrophils % 95.1 %; White Blood Count 18.4 K/mcL (4.3-11.1)
[2020-06-17] MEDS: Gabapentin 400 MG CAPSULE PO SCH ×2 (16:47→20:42)
[2020-06-17] MEDS ORDERED: cefTRIAXone 2,000 MG in Water for inj. (sterile) 20 ML IVP SCH (17:27)
[2020-06-17] MEDS ORDERED: Dextrose Gel 15 GM/37.5 ML TUBE PO PRN ×2 (17:40)
[2020-06-17] MEDS ORDERED: *HR* Dextrose 50 % in Water (Vial) 50 ML VIAL IVP PRN (17:40)
[2020-06-17] MEDS ORDERED: D5% in Water 1,000 ML IVC PRN (17:40)
[2020-06-17 18:09] LABS: Acetaminophen < 10 mcg/mL (10-20); Alanine Aminotransferase 19 Units/L (7-52); Albumin 3.4 g/dL (3.5-5.7); Albumin/Globulin Ratio 1.4 (1.1-2.2); Alkaline Phosphatase 114 Units/L (34-104); Aspartate Amino Transferase 21 Units/L (13-39); BUN/Creatinine Ratio 13 (6-26); Bilirubin,Total 0.4 mg/dL (0.3-1.0); Blood Urea Nitrogen 9 mg/dL (6-20); Calcium 8.7 mg/dL (8.6-10.3); Carbon Dioxide 26 mEq/L (23-29); Chloride 104 mEq/L (98-107); Globulin 2.4 g/dL (2.4-3.5); Glucose 118 mg/dL (70-105); Osmolality,Calculated 290 (280-300); Potassium 3.9 mEq/L (3.5-5.1); Salicylate < 2.5 mg/dL (15.0-30.0); Sodium 140 mEq/L (136-145); Total Protein 5.8 g/dL (6.4-8.9); eGFR For African Americans > 60 (> 60); eGFR For Non-African Americans > 60 (> 60)
[2020-06-17 18:20] LABS: Bilirubin,Urine Negative (Negative); Blood,Urine Negative (Negative); Clarity,Urine Clear (Clear); Color,Urine Light-Yellow (Yellow); Glucose,Urine (UA) Normal (Normal); Ketones,Urine Negative (Negative); Leukocyte Esterase,Urine Negative (Negative); Nitrite,Urine Negative (Negative); PH,Urine 6.5 pH Units (5.0-8.0); Protein,Urine Negative (Neg-Trace); Specific Gravity,Urine 1.013 (1.010-1.025); Urobilinogen,Urine Normal (Normal)
[2020-06-17] MEDS: Insulin LISPRO 300 UNITS/3 ML VIAL SQ SCH (18:41)
[2020-06-17] MEDS: cefTRIAXone 2,000 MG in 0.9 % Sodium Chloride Mini Bag 100 ML IVP SCH (19:01)
[2020-06-17] MEDS: Apixaban 5 MG TABLET PO SCH (20:42)
[2020-06-17] MEDS: *HR* OxyCODONE Immed Rel 5 MG TABLET PO PRN (22:30)
[2020-06-17] MEDS: Budesonide/Formoterol 160/4.5 1 PUFF INH IH SCH (22:39)
[2020-06-18 00:46] LABS: Basophils % 0.1 %; Hematocrit 27.6 % (35.3-44.9); Hemoglobin 8.4 g/dL (11.5-15.4); Immature Granulocytes % 0.7 % (0-4); Lymphocytes # 0.9 K/mcL (0.6-4.6); Lymphocytes % 8.2 %; Mean Corpuscular HGB Conc 30.4 g/dL (31.6-35.5); Mean Corpuscular Hemoglobin 29.5 pg (28.0-33.3); Mean Corpuscular Volume 96.8 fL (83.0-100.0); Mean Platelet Volume 10.2 fL (9.4-12.4); Monocytes # 0.3 K/mcL (0.0-1.3); Monocytes % 2.5 %; Neutrophils # 9.5 K/mcL (1.6-8.9); Platelet Count 356 K/mcL (140-400); Red Blood Count 2.85 M/mcL (3.82-4.97); Segmented Neutrophils % 88.5 %; White Blood Count 10.7 K/mcL (4.3-11.1)
[2020-06-18 00:52] LABS: INR 1.4; Prothrombin Time 16.1 Seconds (9.4-12.1)
[2020-06-18] MEDS: Insulin LISPRO 300 UNITS/3 ML VIAL SQ SCH ×4 (00:55→16:46)
[2020-06-18 01:01] LABS: BUN/Creatinine Ratio 15 (6-26); Blood Urea Nitrogen 9 mg/dL (6-20); Calcium 8.8 mg/dL (8.6-10.3); Carbon Dioxide 24 mEq/L (23-29); Chloride 103 mEq/L (98-107); Glucose 137 mg/dL (70-105); Magnesium 1.7 mg/dL (1.6-2.6); Osmolality,Calculated 289 (280-300); Phosphorous 3.1 mg/dL (2.7-4.5); Potassium 3.8 mEq/L (3.5-5.1); Sodium 139 mEq/L (136-145); eGFR For African Americans > 60 (> 60); eGFR For Non-African Americans > 60 (> 60)
[2020-06-18] MEDS: Ipratropium/Albuterol Neb 3 ML IH SCH ×3 (03:53→16:16)
[2020-06-18] MEDS: *HR* OxyCODONE Immed Rel 5 MG TABLET PO PRN ×2 (04:44→12:27)
[2020-06-18] MEDS: MethylPREDNISolone 40 MG/ML VIAL IVP SCH ×2 (05:57→16:58)
[2020-06-18] MEDS: Apixaban 5 MG TABLET PO SCH (08:33)
[2020-06-18] MEDS ORDERED: GI Cocktail 40 ML EACH PO ONE (08:38)
[2020-06-18] MEDS ORDERED: *HR* HYDROmorphone 2 MG/ML SYRINGE IVP ONE (08:39)
[2020-06-18] MEDS ORDERED: Aspirin 81 MG TAB.CHEW PO SCH (09:00)
[2020-06-18] MEDS: Budesonide/Formoterol 160/4.5 1 PUFF INH IH SCH (10:55)
[2020-06-18] MEDS: Gabapentin 400 MG CAPSULE PO SCH ×3 (11:00→17:04)
[2020-06-18] MEDS: Azithromycin 250 MG TABLET PO SCH (11:01)
[2020-06-18] MEDS ORDERED: *HR* HYDROmorphone (PF) 1 MG/ML SYRINGE IVP PRN (11:12)
[2020-06-18] MEDS: cefTRIAXone 2,000 MG in 0.9 % Sodium Chloride Mini Bag 100 ML IVP SCH (17:04)
[2020-06-18 19:04] VITALS: BP 112/70
== END 2020-06-18 19:30 | disposition short-term general hospital (02) ==
LOC: 3NENU → SUATTDRO 13:52
PROVIDERS: ADMIT Internal Medicine; ATTEND Family Medicine

== ENCOUNTER 2020-09-17 22:26 | Inpatient (IN) ==
[2020-09-18] MEDS ORDERED: *HR* OxyCODONE Immed Rel 15 MG TABLET PO PRN (01:22)
[2020-09-18] MEDS ORDERED: haloperidoL 1 MG TABLET PO PRN (01:26)
[2020-09-18] MEDS ORDERED: *HR* FentaNYL PATCH 25 MCG PATCH TD SCH (01:30)
[2020-09-18] MEDS: *HR* LORazepam 1 MG TABLET PO PRN ×2 (01:44→08:31)
[2020-09-18] MEDS: [UNRECOGNIZED DRUG - OTHER] PO PRN ×3 (01:45→11:11)
[2020-09-18] MEDS: Gabapentin 400 MG CAPSULE PO SCH ×3 (08:30→20:43)
[2020-09-18] MEDS: *HR* HYDROmorphone (PF) 1 MG/ML SYRINGE IVP PRN ×2 (08:31→12:56)
[2020-09-18] MEDS ORDERED: *HR* FentaNYL PATCH 50 MCG PATCH TD SCH (13:45)
[2020-09-18] MEDS ORDERED: *HR* FentaNYL PATCH 75 MCG PATCH TD SCH (15:00)
[2020-09-18] MEDS: Silver Sulfadiazine 50 GM TUBE TP SCH (15:40)
[2020-09-18] MEDS: *HR* LORazepam Oral Conc 2 MG/ML SL PRN (18:23)
[2020-09-19] MEDS: *HR* LORazepam Oral Conc 2 MG/ML SL PRN ×4 (02:08→23:52)
[2020-09-19] MEDS: *HR* HYDROmorphone (PF) 1 MG/ML SYRINGE IVP PRN ×5 (09:11→22:31)
[2020-09-19] MEDS: Gabapentin 400 MG CAPSULE PO SCH (09:12)
[2020-09-19] MEDS: Silver Sulfadiazine 50 GM TUBE TP SCH (09:13)
[2020-09-19] MEDS: Gabapentin 400 MG CAPSULE GTUBE SCH ×3 (19:43→21:37)
[2020-09-19] MEDS: Haloperidol Oral Conc 10 MG/5 ML UDC PO PRN (22:31)
[2020-09-20] MEDS: *HR* HYDROmorphone (PF) 1 MG/ML SYRINGE IVP PRN ×5 (08:24→23:48)
[2020-09-20] MEDS: *HR* LORazepam Oral Conc 2 MG/ML SL PRN (08:30)
[2020-09-20] MEDS: Gabapentin 400 MG CAPSULE GTUBE SCH (08:30)
[2020-09-20] MEDS: *HR* FentaNYL PATCH 100 MCG PATCH TD SCH (11:10)
[2020-09-20] MEDS: *HR* FentaNYL PATCH 75 MCG PATCH TD SCH (11:10)
[2020-09-20] MEDS: *HR* LORazepam Oral Conc 2 MG/ML SL SCH ×3 (12:40→23:32)
[2020-09-20] MEDS: Silver Sulfadiazine 50 GM TUBE TP SCH ×2 (20:25→21:53)
[2020-09-21] MEDS: Haloperidol Oral Conc 10 MG/5 ML UDC PO PRN ×3 (04:56→21:46)
[2020-09-21] MEDS: *HR* LORazepam Oral Conc 2 MG/ML SL SCH ×4 (05:37→23:43)
[2020-09-21] MEDS: *HR* HYDROmorphone (PF) 1 MG/ML SYRINGE IVP PRN (05:37)
[2020-09-21] MEDS: *HR* LORazepam Oral Conc 2 MG/ML SL PRN (10:43)
[2020-09-21] MEDS: Silver Sulfadiazine 50 GM TUBE TP SCH (21:06)
[2020-09-22] MEDS: *HR* LORazepam Oral Conc 2 MG/ML SL SCH ×4 (05:29→22:17)
[2020-09-22] MEDS ORDERED: Haloperidol Lactate 5 MG/ML VIAL IVP ONE (09:01)
[2020-09-22] MEDS ORDERED: Haloperidol Lactate 5 MG/ML VIAL IVP PRN (10:45)
[2020-09-22] MEDS ORDERED: Scopolamine Patch 1.5 MG PATCH.TD72 TD SCH (11:00)
[2020-09-22] MEDS: Haloperidol Oral Conc 10 MG/5 ML UDC PO SCH ×2 (11:49→17:39)
[2020-09-22] MEDS: *HR* LORazepam Oral Conc 2 MG/ML SL PRN (15:42)
[2020-09-22] MEDS: Atropine 1% Opth Drops 100 DROP/5 ML BOTTLE SL PRN (15:42)
[2020-09-22] MEDS: Silver Sulfadiazine 50 GM TUBE TP SCH (20:07)
[2020-09-23] MEDS: Haloperidol Oral Conc 10 MG/5 ML UDC PO SCH ×4 (00:30→17:25)
[2020-09-23] MEDS: *HR* LORazepam Oral Conc 2 MG/ML SL PRN ×2 (02:32→19:46)
[2020-09-23] MEDS: *HR* LORazepam Oral Conc 2 MG/ML SL SCH ×3 (06:06→17:26)
[2020-09-23] MEDS: Atropine 1% Opth Drops 100 DROP/5 ML BOTTLE SL PRN (09:14)
[2020-09-23] MEDS: *HR* FentaNYL PATCH 75 MCG PATCH TD SCH (09:14)
[2020-09-23] MEDS: *HR* FentaNYL PATCH 100 MCG PATCH TD SCH (09:15)
[2020-09-23] MEDS ORDERED: *HR* FentaNYL PATCH 100 MCG PATCH TD SCH (10:30)
[2020-09-23] MEDS: Silver Sulfadiazine 50 GM TUBE TP SCH (19:53)
[2020-09-24] MEDS: *HR* LORazepam Oral Conc 2 MG/ML SL SCH ×3 (00:26→12:04)
[2020-09-24] MEDS: Haloperidol Oral Conc 10 MG/5 ML UDC PO SCH ×3 (00:26→12:07)
[2020-09-24 06:44] VITALS: BP 113/71
== END 2020-09-24 14:30 | disposition hospice, home (50) | DRG 951 ==
LOC: 2ANU 09-18 00:51
PROVIDERS: ADMIT Internal Medicine Hospice and Palliative Medicine; ATTEND Internal Medicine Hospice and Palliative Medicine